=== PATIENT | male | born 1955 | race Caucasian/White ===

== ENCOUNTER 2016-11-17 16:46 | Emergency (ER) | payer MEDICAID ==
[2016-11-17] MEDS ORDERED: METOPROLOL 5 MG/5 ML VIAL IVP STA (17:48)
[2016-11-17] MEDS ORDERED: NITROGLYCERIN SL 0.4 MG TABLET SL STA (17:48)
[2016-11-17] MEDS ORDERED: HYDROmorphone 1 MG/ML SYRINGE IVP STA ×2 (17:48→19:21)
[2016-11-17] MEDS ORDERED: HYDROmorphone 1 MG/ML SYRINGE ONE ×2 (17:51→19:27)
[2016-11-17] MEDS ORDERED: NITROGLYCERIN SL 0.4 MG TABLET SL ONE (17:51)
[2016-11-17] MEDS ORDERED: METOPROLOL 5 MG/5 ML VIAL IVP ONE (18:01)
[2016-11-17] MEDS ORDERED: IPRATROPIUM/ALBUTEROL 3 ML NEB INH STA (18:47)
[2016-11-17] MEDS ORDERED: IPRATROPIUM/ALBUTEROL 3 ML NEB INH ONE (18:57)
[2016-11-17] MEDS ORDERED: DEXAMETHASONE 10 MG/ML VIAL IVP STA (20:15)
[2016-11-17] MEDS ORDERED: DEXAMETHASONE 10 MG/ML VIAL ONE (20:28)
== END 2016-11-17 20:46 | disposition home or self-care (01) ==
DX: J44.9 Chronic obstructive pulmonary disease, unspecified (principal); J44.1 Chronic obstructive pulmonary disease with (acute) exacerbation; R06.02 Shortness of breath; R07.2 Precordial pain; Z79.82 Long term (current) use of aspirin; I10 Essential (primary) hypertension; F17.200 Nicotine dependence, unspecified, uncomplicated
CPT/HCPCS: 36415; 71020; 80053; 83690; 83735; 83880; 84484; 85025; 93005; 93010; 94640; 96374; 96375; 96376; 99284; A9270; J1170; J7620

== ENCOUNTER 2018-12-07 16:37 | Outpatient (CLI) | payer MEDICAID | END 2018-12-07 16:38 | disposition critical access hospital (66) | LOC: EMS 16:37 | PROVIDERS: ATTEND Surgery | DX: M25.532 Pain in left wrist (principal); W10.8XXA Fall (on) (from) other stairs and steps, initial encounter; Y92.008 Other place in unspecified non-institutional (private) residence as the place of occurrence of the external cause ==

== ENCOUNTER 2018-12-07 16:47 | Emergency (ER) | payer MEDICAID ==
[2018-12-07] MEDS ORDERED: HYDROmorphone 1 MG/ML CARPUJECT IVP STA (16:51)
[2018-12-07] MEDS ORDERED: SODIUM CHLORIDE 0.9% 1,000 ML IV ONE (16:51)
--- NOTE | 2018-12-07 16:55 | ED Physician Documentation ---
History of Present Illness - Stated complaint Stated Complaint: GLF - History obtained from History obtained from: Patient, Family, EMS - History of Present Illness Timing: Today (This is a 63-year-old gentleman who has colon cancer. He has not been eating or drinking well lately and because of that he felt woozy and slipped and fell down 3 concrete steps in the garage today landing on the left wrist and hearing a crack also hitting his knees. He is not sure if he might of hit his head but he says his head does not hurt. There was no loss of consciousness.) Review of Systems Constitutional: reports: Reviewed and negative Cardiac: reports: Reviewed and negative Respiratory: reports: Reviewed and negative GI: reports: Constipation. denies: Nausea PD PAST MEDICAL HISTORY - Past Medical History Cardiovascular: Hypertension, High cholesterol, [place] Respiratory: COPD Endocrine/Autoimmune: HyPOthyroidism GI: GERD : Benign prostate hypertrophy HEENT: None Musculoskeletal: Osteoarthritis, Chronic back pain - Past Surgical History Past Surgical History: Yes General: Appendectomy, Bowel surgery, Hiatal hernia repair - Present Medications Home Medications: Ambulatory Orders Medication Instructions Recorded Confirmed Fentanyl [Fentanyl 12mcg patch] 25 mcg TOP QPM 09/30/14 02/11/16 Fluticasone Propionate [Flovent 50 mcg INH BID 09/30/14 02/11/16 Diskus] Levothyroxine [Synthroid] 175 mcg PO DAILY 09/30/14 02/11/16 Methocarbamol 750 mg PO Q6HR PRN 09/30/14 02/11/16 Nortriptyline HCl 150 mg PO DAILY 09/30/14 02/11/16 Oxybutynin Chloride [Ditropan Xl] 10 mg PO DAILY 09/30/14 02/11/16 Oxycodone HCl 10 mg PO TID 09/30/14 02/11/16 Terazosin HCl 10 mg PO DAILY 09/30/14 02/11/16 raNITIdine HCl [Ranitidine HCl] 150 mg PO BID 09/30/14 02/11/16 Aspirin [Casey Chewable Aspirin] 81 mg PO DAILY 02/11/16 02/11/16 Atorvastatin [Lipitor] 20 mg PO DAILY 02/11/16 02/11/16 Carvedilol 6.25 mg PO BID 02/11/16 02/11/16 Docusate Sodium 250Mg Capsule 250 mg PO DAILY #20 capsule 02/11/16 [Colace] Ibuprofen [Motrin] 200 mg PO DAILY PRN 02/11/16 02/11/16 Isosorbide Mononitrate ER [Imdur] 30 mg PO DAILY 02/11/16 02/11/16 Ondansetron Odt [Zofran] 4 mg TL Q6H PRN #14 tablet 02/11/16 Polyethylene Glycol 3350 [Miralax] 17 gm PO DAILY PRN 02/11/16 02/11/16 Albuterol Sulfate [Proair Hfa 2 puffs IH QID #1 hfa.aer.ad 11/17/16 Inhaler] Carvedilol 6.25 mg PO BID #15 tablet 11/17/16 Dexamethasone [Decadron] 4 mg PO DAILY #5 tablet 11/17/16 Nitroglycerin 0.4 mg SL ONCE PRN #1 bottle 11/17/16 - Allergies Allergies/Adverse Reactions: Allergies Allergy/AdvReac Type Severity Reaction Status Date / Time No Known Drug Allergies Allergy Verified 12/07/18 16:55 - Social History Does the pt smoke?: Yes Smoking Status: Current every day smoker Does the pt drink ETOH?: No Does the pt have substance abuse?: No - Immunizations Immunizations are current?: Yes - POLST Patient has POLST: No PD ED PE NORMAL - Vitals Vital signs reviewed: Yes - General General: Alert and oriented X 3, No acute distress - HEENT HEENT: PERRL, EOMI - Neck Neck: Supple, no meningeal sign, No bony TTP - Abdomen Abdomen: Normal bowel sounds, Soft, Non tender - Derm Derm: Normal color, Warm and dry - Extremities Extremities: Other (There is no deformity of the left wrist he is mildly tender over the ulnar styloid and has limit motion. There are small effusions of both knees with patellar tenderness bilaterally but no ligamentous laxity. He is able to walk and bear weight okay. He also has tenderness in the area of the first right metacarpal, no UCL laxity.) - Neuro Neuro: Alert and oriented X 3, Normal speech - Psych Psych: Normal mood, Normal affect Results - Vitals Vitals: Vital Signs - 24 hr 12/07/18 12/07/18 16:53 16:54 Temperature 36.8 C 36.8 C Heart Rate 67 67 Respiratory 18 18 Rate Blood Pressure 141/100 H 141/100 H O2 Saturation 97 97 Oxygen O2 Source Room air - Labs Labs: Laboratory Tests 12/07/18 17:00 Sodium 138 Potassium 4.1 Chloride 102 Carbon Dioxide 26 Anion Gap 10.0 BUN < 5 L Creatinine 1.0 Estimated GFR (MDRD) 75 L Glucose 114 H Calcium 9.6 Total Bilirubin 0.6 AST 23 ALT 12 Alkaline Phosphatase 130 H Total Protein 8.0 Albumin 4.5 Globulin 3.5 Albumin/Globulin Ratio 1.3 Lipase 33 - Rads (name of study) X-rays of the left wrist, right hand, and both knees Radiology: EMP read contemporaneously (All negative for fracture) PD MEDICAL DECISION MAKING - ED course ED course: Is a 63-year-old gentleman with Colon cancer who sustained a fall today, potentially due to mild dehydration from poor appetite. He was administered IV fluids and pain medication. Relevant x-rays were negative. He is placed in a Velcro wrist splint. Departure - Departure Disposition: 01 Home, Self Care Clinical Impression: Dehydration Left wrist sprain Qualifiers: Encounter type: initial encounter Qualified Code(s): S63.502A - Unspecified sprain of left wrist, initial encounter Contusion of right hand Qualifiers: Encounter type: initial encounter Qualified Code(s): S60.221A - Contusion of right hand, initial encounter Contusion of right knee Qualifiers: Encounter type: initial encounter Qualified Code(s): S80.01XA - Contusion of right knee, initial encounter Contusion of left knee Qualifiers: Encounter type: initial encounter Qualified Code(s): S80.02XA - Contusion of left knee, initial encounter Condition: Good Record reviewed to determine appropriate education?: Yes Instructions: ED Dehydration, ED Knee Pain UKO, ED Sprain Wrist Comments: Recheck with your doctor next week for persistent symptoms. Return for new or worsening symptoms. Your blood pressure was elevated today on check into the emergency department. This does not mean that you have hypertension, it is a common phenomenon to come to the emergency department and have elevated blood pressure. I recommend that you see your primary care physician within the week to have it rechecked when you are feeling better.
[2018-12-07 17:36] LABS: ALBUMIN 4.5 g/dL (3.2-5.5); ALBUMIN/GLOBULIN RATIO 1.3 (1.0-2.2); ALKALINE PHOSPHATASE 130 IU/L (42-121); ALT ALANINE AMINOTRANSFERASE 12 IU/L (10-60); AST ASPARTATE AMINOTRANSFERASE 23 IU/L (10-42); BILIRUBIN,TOTAL 0.6 mg/dL (0.2-1.0); BUN - BLOOD UREA NITROGEN < 5 mg/dL (6-20); CALCIUM 9.6 mg/dL (8.5-10.3); CARBON DIOXIDE - CO2 26 mmol/L (21-32); CHLORIDE 102 mmol/L (101-111); GFR - MDRD 75 (>89); GLUCOSE 114 mg/dL (70-100); LIPASE 33 U/L (22-51); SODIUM 138 mmol/L (135-145)
--- NOTE | 2018-12-07 17:51 | XRAY Report ---
Reason: hand inj Procedure Date: 12/07/2018 Accession Number: [id number] / [id number] Procedure: XR - Hand 3 View RT CPT Code: FULL RESULT: EXAM: RIGHT HAND RADIOGRAPHY EXAM DATE: 12/07/2018 05:18 PM. CLINICAL HISTORY: Hand inj. Thumb pain. COMPARISON: None. TECHNIQUE: 3 views. FINDINGS: Bones: Normal. No fractures or bone lesions. Joints: Normal. No subluxations. Soft Tissues: Normal. No soft tissue swelling. IMPRESSION: No fracture or subluxation. RADIA
--- NOTE | 2018-12-07 18:01 | XRAY Report ---
Reason: fall, knee and wrist inj Procedure Date: 12/07/2018 Accession Number: [id number] / [id number] Procedure: XR - Wrist 4 View LT CPT Code: FULL RESULT: EXAM: LEFT WRIST RADIOGRAPHY EXAM DATE: 12/07/2018 05:18 PM. CLINICAL HISTORY: Fall, knee and wrist inj. COMPARISON: None. TECHNIQUE: 4 views. FINDINGS: Bones: No fracture or bone destruction. Joints: Normal. No subluxations. Soft Tissues: There is dorsal forearm distal soft tissue swelling. IMPRESSION: No acute fracture or subluxation. RADIA
--- NOTE | 2018-12-07 18:03 | XRAY Report ---
Reason: fall, knee and wrist inj Procedure Date: 12/07/2018 Accession Number: [id number] / [id number] Procedure: XR - Knee 4 View BILAT CPT Code: FULL RESULT: EXAMS: 1. Right Knee Radiography 2. Left Knee Radiography EXAM DATE:12/07/2018 05:18 PM. CLINICAL HISTORY:Fall, knee and wrist inj. COMPARISON: None. TECHNIQUE: 4 views each. FINDINGS: Right Knee: Bones: Normal. No fractures or bone lesions. Joints: Normal. No effusion. No subluxations. Soft Tissues: Normal. No soft tissue swelling. Left Knee: Bones: Normal. No fractures or bone lesions. Joints: Normal. No effusion. No subluxations. Soft Tissues: Normal. No soft tissue swelling. IMPRESSION: No fracture or joint effusion bilaterally. RADIA
[2018-12-07 18:39] VITALS: BP 136/96
== END 2018-12-07 18:38 | disposition home or self-care (01) ==
LOC: EDUNIT# → ED 16:47
DX: E86.0 Dehydration (principal); S63.502A Unspecified sprain of left wrist, initial encounter; S60.221A Contusion of right hand, initial encounter; S80.01XA Contusion of right knee, initial encounter; S80.02XA Contusion of left knee, initial encounter; W10.8XXA Fall (on) (from) other stairs and steps, initial encounter; Y92.59 Other trade areas as the place of occurrence of the external cause; I10 Essential (primary) hypertension; C18.9 Malignant neoplasm of colon, unspecified; E78.00 Pure hypercholesterolemia, unspecified; E03.9 Hypothyroidism, unspecified; F17.200 Nicotine dependence, unspecified, uncomplicated; Z79.82 Long term (current) use of aspirin
CPT/HCPCS: 36415; 73110; 73130; 73564; 80053; 83690; 96361; 96374; 99283; 99284; J1170

== ENCOUNTER 2019-08-06 15:36 | Outpatient (CLI) | payer MEDICAID ==
[2019-08-06 16:10] LABS: CREATININE 0.9 mg/dL (0.6-1.2)
== END 2019-08-06 15:37 | disposition home or self-care (01) ==
LOC: LAB 15:36
PROVIDERS: ATTEND Urology
DX: N28.9 Disorder of kidney and ureter, unspecified (principal)
CPT/HCPCS: 36415; 82565; 84520

== ENCOUNTER 2020-03-06 14:36 | Outpatient (CLI) | payer MEDICAID ==
--- NOTE | 2020-03-06 17:55 | Ultrasound Report ---
Reason: SCROTAL PAIN Procedure Date: 03/06/2020 Accession Number: [id number] / [id number] Procedure: US - Testicle CPT Code: Final Report FULL RESULT: EXAM: SCROTAL ULTRASOUND EXAM DATE: 03/06/2020 03:20 PM. CLINICAL HISTORY: SCROTAL PAIN. COMPARISON: None. TECHNIQUE: Real-time scanning was performed with static images obtained. Color-flow images were utilized. FINDINGS: Right: Testis: 4.0 x 1.5 x 3.3 cm. Normal size and echotexture. No mass, calcification, or abnormal blood flow. Epididymis: Multiple simple cysts in the region of the epididymis with the normal epididymal parenchyma not well seen. The conglomerate of thin-walled cyst measures 3.1 x 1.5 x 2.0 cm. Hydrocele: None. Varicocele: None. Left: Testis: 3.9 x 1.8 x 2.5 cm. Normal size and echotexture. No mass, calcification, or abnormal blood flow. Epididymis: 3.9 x 1.8 x 2.5 cm. Normal size and echotexture. No mass or abnormal blood flow. Hydrocele: None. Varicocele: None. IMPRESSION: Multiple right-sided epididymal cysts. Otherwise, normal scrotal ultrasound. No finding of testicular torsion or epididymal orchitis. RADIA
--- NOTE | 2020-03-06 17:59 | Ultrasound Report ---
Reason: LT SIDE RENAL MASS Procedure Date: 03/06/2020 Accession Number: [id number] / [id number] Procedure: US - Retroperitoneal CPT Code: Final Report FULL RESULT: EXAM: RENAL ULTRASOUND EXAM DATE: 03/06/2020 03:40 PM. CLINICAL HISTORY: LT SIDE RENAL MASS. COMPARISON: None. TECHNIQUE: Real-time scanning was performed with static images obtained. FINDINGS: Right Kidney: 10.6 x 4.5 x 5.6 cm. Normal echotexture with no stones, contour-deforming masses, or hydronephrosis. Left Kidney: 10.5 x 8.5 x 5.5 cm. Normal echotexture with no stones, contour-deforming masses, or hydronephrosis. 2.2 cm simple cyst. - No imaging follow-up is recommended per consensus recommendations based on imaging criteria. Bladder: Bilateral jets seen. Prevoid bladder volume 54 mL. Patient unable to void. Other: Prostate volume 51 mL. Simple 1.1 cm prostate cyst. IMPRESSION: Enlarged prostate with 1.1 cm simple prostate cyst. Otherwise, normal renal and bladder ultrasound. RADIA
== END 2020-03-06 14:37 | disposition home or self-care (01) ==
LOC: DI 14:36
PROVIDERS: ATTEND Nurse Practitioner
DX: N50.82 Scrotal pain (principal); N50.3 Cyst of epididymis; N42.83 Cyst of prostate; N40.0 Benign prostatic hyperplasia without lower urinary tract symptoms
CPT/HCPCS: 76770; 76870

== ENCOUNTER 2020-03-14 19:56 | Outpatient (CLI) | payer MEDICAID ==
--- NOTE | 2020-03-14 23:23 | Ultrasound Report ---
Reason: BILATERAL LEG PX Procedure Date: 03/14/2020 Accession Number: [id number] / [id number] Procedure: US - Duplex Lwr Ext Arterial Bilat CPT Code: Final Report FULL RESULT: PROCEDURE: Duplex lower Ext Arterial Bilat INDICATIONS: BILATERAL LEG PX TECHNIQUE: Color and pulse Doppler interrogation was performed of both lower extremity arterial systems, with image documentation. COMPARISON: None. FINDINGS: Right lower extremity: Common femoral artery: 137 cm/sec, with monophasic flow. Deep femoral artery: 85 cm/sec, with biphasic flow. Proximal superficial femoral artery: 95 cm/sec, with triphasic flow. Mid superficial femoral artery: 95 cm/sec, with triphasic flow. Distal superficial femoral artery: 104 cm/sec, with triphasic flow. Popliteal artery: 57 cm/sec, with triphasic flow. Posterior tibial artery: 57 cm/sec, with monophasic flow. Anterior tibial artery/dorsalis pedis: 92/65 cm/sec, with monophasic flow. Mccall-scale imaging description: Diffuse atherosclerotic plaque most pronounced in the KITMAN and proximal SFA. Left lower extremity: Common femoral artery: 91 cm/sec, with triphasic flow. Deep femoral artery: 99 cm/sec, with monophasic flow. Proximal superficial femoral artery: 83 cm/sec, with monophasic flow. Mid superficial femoral artery: 98 cm/sec, with triphasic flow. Distal superficial femoral artery: 80 cm/sec, with triphasic flow. Popliteal artery: 61 cm/sec, with triphasic flow. Posterior tibial artery: 75 cm/sec, with monophasic flow. Anterior tibial artery/dorsalis pedis: 60/43 cm/sec, with monophasic flow. Mccall-scale imaging description: Diffuse atherosclerotic plaque most pronounced in the KITMAN and proximal SFA. IMPRESSION: Diffuse atherosclerotic plaque in the bilateral KITMAN and proximal SFA. Minimally elevated velocities in the right KITMAN and distal SFA. No critical stenosis identified. Reviewed by: Clyde Ortega MD on 03/14/2020 11:22 PM PDT Approved by: Clyde Ortega MD on 03/14/2020 11:22 PM PDT Station ID: [id number]
== END 2020-03-14 19:57 | disposition home or self-care (01) ==
LOC: DI 19:56
PROVIDERS: ATTEND Family Medicine
DX: I70.203 Unspecified atherosclerosis of native arteries of extremities, bilateral legs (principal)
CPT/HCPCS: 93925

== ENCOUNTER 2020-06-11 23:38 | Emergency (ER) | payer MEDICAID ==
--- NOTE | 2020-06-12 00:47 | ED Physician Documentation ---
PD HPI BACK PAIN - Stated complaint Stated Complaint: BACK PX - Chief complaint Chief Complaint: Back Pain - History obtained from History obtained from: Family - History of Present Illness Timing - onset: How many minutes ago (90) Timing - details: Abrupt onset Pain level max: 9 Pain level now: 8 Location: Lower Quality: Pain, Spasm, Similar to prior episodes Associated symptoms: No: Fever, Weakness, Numbness, Incontinent of urine, Unable to urinate, Hematuria, Incontinent of stool Improves with: Rest Worsened by: Movement Recently seen: Not recently seen - Additional information Additional information: c/o sudden onset of exacerbation of chronic lower back pain when he bent forward to flush toiler at home, approximately 2 hours ago, took oxycodone without improvement. exacerbated with position, lying flat in bed. Review of Systems Constitutional: reports: Reviewed and negative GI: reports: Reviewed and negative : denies: Dysuria, Frequency, Unable to Void, Incontinent Musculoskeletal: reports: Back pain Neurologic: reports: Reviewed and negative. denies: Generalized weakness, Focal weakness PD PAST MEDICAL HISTORY - Past Medical History Past Medical History: Yes Cardiovascular: Hypertension, High cholesterol, [place] Respiratory: COPD Endocrine/Autoimmune: HyPOthyroidism GI: GERD, Other : Benign prostate hypertrophy HEENT: None Musculoskeletal: Osteoarthritis, Chronic back pain Other Past Medical History: Colon CA - Past Surgical History Past Surgical History: Yes General: Appendectomy, Bowel surgery, Hiatal hernia repair, Other Cardiovascular: Pacemaker - Present Medications Home Medications: Ambulatory Orders Medication Instructions Recorded Confirmed Fluticasone Propionate [Flovent 50 mcg INH BID 09/30/14 06/12/20 Diskus] Levothyroxine [Synthroid] 175 mcg PO DAILY 09/30/14 06/12/20 Oxybutynin Chloride [Ditropan Xl] 10 mg PO DAILY 09/30/14 06/12/20 Oxycodone HCl 10 mg PO TID 09/30/14 06/12/20 Terazosin HCl 10 mg PO DAILY 09/30/14 06/12/20 methocarbamoL [Methocarbamol] 750 mg PO Q6HR PRN 09/30/14 06/12/20 Aspirin [Casey Chewable Aspirin] 81 mg PO DAILY 02/11/16 06/12/20 Atorvastatin [Lipitor] 20 mg PO DAILY 02/11/16 06/12/20 Docusate Sodium 250Mg Capsule 250 mg PO DAILY #20 capsule 02/11/16 06/12/20 [Colace] Ibuprofen [Motrin] 200 mg PO DAILY PRN 02/11/16 06/12/20 Isosorbide Mononitrate ER [Imdur] 30 mg PO DAILY 02/11/16 06/12/20 polyethylene glycoL 3350 [Miralax] 17 gm PO DAILY PRN 02/11/16 06/12/20 Albuterol Sulfate [Proair Hfa 2 puffs IH QID #1 hfa.aer.ad 11/17/16 06/12/20 Inhaler] Carvedilol 6.25 mg PO BID #15 tablet 11/17/16 06/12/20 diazePAM [Valium] 5 - 10 mg PO TID PRN #15 tablet 06/12/20 - Allergies Allergies/Adverse Reactions: Allergies Allergy/AdvReac Type Severity Reaction Status Date / Time gabapentin Allergy Hallucinati Verified 06/12/20 00:00 ons - Social History Does the pt smoke?: Yes Smoking Status: Current every day smoker Does the pt drink ETOH?: No Does the pt have substance abuse?: No - Immunizations Immunizations are current?: Yes - POLST Patient has POLST: No PD ED PE NORMAL - Vitals Vital signs reviewed: Yes - General General: Alert and oriented X 3, No acute distress (NAD at rest, obvious painful distress with movement involving lower back), Well developed/nourished - Neck Neck: Supple, no meningeal sign - Cardiac Cardiac: RRR, No murmur - Respiratory Respiratory: No respiratory distress, Clear bilaterally - Abdomen Abdomen: Soft, Non tender - Back Back: No CVA TTP, No spinal TTP - Derm Derm: Normal color, Warm and dry, No rash - Extremities Extremities: No edema - Neuro Neuro: Alert and oriented X 3, soaker helper 2-12 intact, No motor deficit, No sensory deficit Results - Vitals Vitals: Oxygen O2 Source Room air - Rads (name of study) lumbar spine xrays Radiology: Prelim report reviewed, See rad report PD MEDICAL DECISION MAKING - ED course Complexity details: reviewed results, re-evaluated patient, considered differential, d/w patient Departure - Departure Disposition: 01 Home, Self Care Clinical Impression: Back pain Condition: Good Instructions: ED Neck Back Pain General Follow-Up: NARESH,YUJIN, DO [Primary Care Provider] - Prescriptions: diazePAM [Valium] 5 - 10 mg PO TID PRN #15 tablet PRN Reason: Spasms Discharge Date/Time: 06/12/20 04:15
[2020-06-12] MEDS ORDERED: diazePAM 5 MG TABLET PO STA ×2 (01:24→03:24)
[2020-06-12] MEDS ORDERED: HYDROmorphone 1 MG/ML CARPUJECT IM STA (03:24)
[2020-06-12 04:05] VITALS: BP 139/101
--- NOTE | 2020-06-12 09:13 | XRAY Report ---
PROCEDURE: Lumbar Spine 2 View INDICATIONS: low back pain TECHNIQUE: 2 views of the lumbar spine were acquired. COMPARISON: None. FINDINGS: Bones: 5 [id number] vertebrae are present. There is moderate to severe disc and foraminal narr owing at L4-5, L5-S1. Trace anterolithesis of L5 on S1, No vertebral body compression fractures. N o suspicious bony lesions. Soft tissues: Overlying bowel gas pattern is normal. No suspicious soft tissue calcifications. IMPRESSION: Degenerative changes most notable at L4-5, L5-S1. Reviewed by: Celeste Santana MD on 06/12/2020 9:12 AM PDT Approved by: Celeste Santana MD on 06/12/2020 9:12 AM PDT Station ID: [id number]
== END 2020-06-12 04:15 | disposition home or self-care (01) ==
LOC: ED 23:38
DX: M51.36 Other intervertebral disc degeneration, lumbar region (principal); I10 Essential (primary) hypertension; F17.200 Nicotine dependence, unspecified, uncomplicated; Z79.82 Long term (current) use of aspirin
CPT/HCPCS: 72100; 96372; 99283; 99284; A9270; J1170

== ENCOUNTER 2020-10-24 14:07 | Outpatient (CLI) | payer MEDICAID ==
[2020-10-24] MEDS ORDERED: IOVERSOL 320 100 ML VIAL IVP ONE ×3 (14:40→15:29)
--- NOTE | 2020-10-24 17:11 | CT Report ---
PROCEDURE: ABDOMEN W/WO INDICATIONS: RENAL PROTOCOL - LEFT RENAL MASS CONTRAST: IV CONTRAST: Optiray 320 ml: 140 PO CONTRAST: *NO PO CONTRAST TECHNIQUE: 4 phase scanning was performed. After the administration of intravenous contrast, 5 mm thick section s acquired from the diaphragm to the symphysis. 5 mm coronal and sagittal reformats were acquired. For radiation dose reduction, the following was used: automated exposure control, adjustment of mA a nd/or kV according to patient size. COMPARISON: Ultrasound 03/06/2020, CT abdomen pelvis 02/11/2016 FINDINGS: Image quality: Excellent. Lung bases: Lung bases are demonstrate mild emphysematous changes. Heart size is normal. Partially imaged pacemaker lead and mild pericardial thickening anteriorly. Kidneys: Partially exophytic rounded mass arises from the upper pole of the left kidney measuring 2. 1 cm in AP diameter and demonstrating enhancement postcontrast (precontrast Hounsfield units are 26 a nd post contrast Hounsfield units are 63.) There is a 2.0 cm cyst in the midpole of the left kidney. No intrarenal calcifications or hydronephrosis. The visible portions of the proximal ureters are norm al. Other solid organs: Liver demonstrates several thin-walled hypodensities consistent with cysts. Some irregular hypodensities may be benign hemangiomas, most too small to characterize. Gallbladder is nor mal. Biliary system is non dilated. Pancreas is normal in morphology. Spleen is normal in size and enhancement. No adrenal nodules. Nodes and vessels: No retroperitoneal or mesenteric adenopathy by size criteria. There is fusiform a neurysmal dilatation of the mid abdominal aorta for length of approximately 4.8 cm. There is an eccen trically thickened right lateral wall. Transverse diameter is about 3.9 cm and AP diameter is 3.2 cm. The inferior vena cava is normal caliber. Bowel and peritoneum: Unenhanced bowel loops are normal in caliber. Fairly large quantity of solid s tool present in the visible distal colon. There is a bowel anastomosis in the left mid abdomen. Cecilia l appendix. No free fluid or air. Bones: No suspicious bony lesions. No vertebral body compression fractures. Miscellaneous: No ventral hernias. IMPRESSION: 1. 2.1 cm enhancing mass arising from the anterior upper pole of left kidney. This has increased in s ize since the prior CT study and hasn't differential diagnosis of renal cell carcinoma or oncocytoma. A Biopsy is recommended. 2. Several hepatic cysts and/or hemangiomas and one other left renal cyst. 3. Mid abdominal aortic aneurysm. This has developed since prior CT study. Reviewed by: Leonora Jo MD on 10/24/2020 5:10 PM PST Approved by: Leonora oJ MD on 10/24/2020 5:10 PM PST Station ID: [id number]
== END 2020-10-24 14:08 | disposition home or self-care (01) ==
LOC: DI 14:07
PROVIDERS: ATTEND Urology
DX: N28.89 Other specified disorders of kidney and ureter (principal); N28.1 Cyst of kidney, acquired; K76.89 Other specified diseases of liver; I71.4 Abdominal aortic aneurysm, without rupture
CPT/HCPCS: 74170; Q9967

== ENCOUNTER 2021-03-04 14:50 | Outpatient (CLI) | payer MEDICAID ==
--- NOTE | 2021-03-04 17:07 | CT Report ---
PROCEDURE: CERVICAL SPINE WO INDICATIONS: CERVICALGIA TECHNIQUE: Noncontrast 3 mm thick sections acquired from the skull base to the T4 level. Sagittal and coronal r eformats were then constructed. For radiation dose reduction, the following was used: automated exp osure control, adjustment of mA and/or kV according to patient size. COMPARISON: None. FINDINGS: Image quality: Excellent. Bones: No fractures or dislocations. Straightening of the normal lordotic curvature. Trace retroli sthesis of C3 on C4. Scattered multilevel endplate spurring and diffuse facet arthropathy. There is d iffuse moderate disc height loss throughout the cervical spine. No high-grade bony canal stenosis. At C3-C4, severe right bony foraminal stenosis. Mild/moderate left bony foraminal narrowing At C4-C5, severe right bony foraminal stenosis. Moderate left bony foraminal narrowing. At C4-C5 moderate bilateral bony foraminal narrowing. At C5-C6, mild bilateral bony foraminal narrowing. At C6-C7, mild bilateral bony foraminal narrowing. At C7-T1, mild to moderate bilateral bony foraminal narrowing. Soft tissues: Prevertebral soft tissues are normal in thickness. No paravertebral hematomas. No ap ical pneumothoraces. There is severe upper lobe predominant emphysema. IMPRESSION: Diffuse cervical spondylosis and facet arthropathy. No high-grade bony canal stenosis. Severe right C3-C4 and C4-C5 bony foraminal narrowing. Moderate bilateral C4-C5 bony foraminal narrowing. Reviewed by: Festus Doty MD on 03/04/2021 5:05 PM PDT Approved by: Festus Doty MD on 03/04/2021 5:05 PM PDT Station ID: [id number]
== END 2021-03-04 14:51 | disposition home or self-care (01) ==
LOC: DI 14:50
PROVIDERS: ATTEND Physician Assistant Medical
DX: M47.812 Spondylosis without myelopathy or radiculopathy, cervical region (principal); M48.02 Spinal stenosis, cervical region

== ENCOUNTER 2021-03-14 17:16 | Outpatient (CLI) | payer MEDICAID ==
--- NOTE | 2021-03-14 18:14 | Ultrasound Report ---
PROCEDURE: Pelvic Limited or F/U INDICATIONS: LEFT GROIN PAIN TECHNIQUE: Real-time transabdominal scanning was performed of the area of current clinical concern, left groin r egion, with image documentation. COMPARISON: None. FINDINGS: There is a left femoral hernia in the area of current clinical concern, which appears to r epresent bowel given presence of peristalsis. The herniation is mobile, increasing with Valsalva, and shows no evidence of current incarceration or strangulation. IMPRESSION: Significant size bowel containing left inguinal hernia. CT scanning likely is warranted for surgical planning. Reviewed by: Tab Joseph MD on 03/14/2021 5:12 PM BAILEY Approved by: Tab Joseph MD on 03/14/2021 5:12 PM AKSURINDER Station ID: [id number]
== END 2021-03-14 17:17 | disposition home or self-care (01) ==
LOC: DI 17:16
PROVIDERS: ATTEND Family Medicine
DX: K40.90 Unilateral inguinal hernia, without obstruction or gangrene, not specified as recurrent (principal)

== ENCOUNTER 2022-11-04 07:58 | Emergency (ER) | payer MEDICARE, MEDICAID ==
--- OUTSIDE RECORDS SUMMARY | 2022-11-04 08:23 | EXTERNAL MEDICAL SUMMARY RPT | Continuity of Care Document ---
:1955 Author Organization [facility] Address [address] [place] [address] Phone Care Team Providers Name Role Phone Unavailable Unavailable Unavailable Jacinda Chou Unavailable Unavailable Allergies and Intolerances date description facility type (no date) duloxetine [facility] (unknown) (no date) gabapentin [facility] (unknown) (no date) nortriptyline [facility] (unknown) (no date) pregabalin [facility] (unknown) Encounters No information. Functional Status No information. Immunizations No information. Medications No information. Problems date description facility 2022-10-18 00:00 Pain in right testicle [facility] Procedures date description facility 2022-10-18 00:00 [facility] Results/Labs test date author facility value unit interpret ation Result panel 1 (unknown) (no (unknown) (unknown) (no value) (units (unk nown) date) unknown) (unknown) (no (unknown) (unknown) [id number] (units (unkno wn) date) unknown) (unknown) (no (unknown) (unknown) 10/18/22 (units (unkno wn) date) unknown) (unknown) (no (unknown) (unknown) [address] [place] [address] (units (unknown) date) unknown) (unknown) (no (unknown) (unknown) Accession (units (unkn own) date) Number: unknown) [id number] (unknown) (no (unknown) (unknown) Age/Sex: 67 / M (units (unknown) date) Date of Service: unknown) (unknown) (no (unknown) (unknown) MOHAMUD [place] (units ( unknown) date) [id number] unknown) (unknown) (no (unknown) (unknown) Approved by: (units (u nknown) date) Deandre Sanchez M.D. unknown) on 10/18/2022 at 19:24 (unknown) (no (unknown) (unknown) COMPARISON: (units (un known) date) [facility], unknown) US, US SCROTUM, 06/01/2022, 13:07. (unknown) (no (unknown) (unknown) Cluster of cysts (units (unknown) date) in the right unknown) scrotum again seen measuring up to 2.4 (unknown) (no (unknown) (unknown) Color and pulse (units (unknown) date) Doppler unknown) interrogation was performed of both testicles. (unknown) (no (unknown) (unknown) : 1955 (units (unknown) date) Acct:[id number] unknown) (unknown) (no (unknown) (unknown) Dictated by: (units (u nknown) date) Deandre Sanchez M.D. unknown) on 10/18/2022 at 19:21 (unknown) (no (unknown) (unknown) Doppler: Color (units (unknown) date) and pulse Doppler unknown) demonstrate normal and symmetric arterial (unknown) (no (unknown) (unknown) Epididymis (units (unk nown) date) within normal unknown) limits. (unknown) (no (unknown) (unknown) FINDINGS: (units (unkn own) date) unknown) (unknown) (no (unknown) (unknown) IMPRESSION: No (units (unknown) date) evidence of unknown) torsion. Trace left hydrocele. Other findings as (unknown) (no (unknown) (unknown) INDICATIONS: (units (u nknown) date) PAIN unknown) (unknown) (no (unknown) (unknown) [facility] (units (unknown) date) unknown) (unknown) (no (unknown) (unknown) Left: Left (units (unk nown) date) testis measures unknown) 3.4 x 2 x 2.8 centimeters. Overall echotexture is (unknown) (no (unknown) (unknown) Loc: ED (units (unkno wn) date) unknown) (unknown) (no (unknown) (unknown) No hydrocele or (units (unknown) date) varicocele. unknown) (unknown) (no (unknown) (unknown) Ordering (units (unkno wn) date) Provider: unknown) Selina Barajas D.O. (unknown) (no (unknown) (unknown) PROCEDURE: US (units ( unknown) date) SCROTUM unknown) (unknown) (no (unknown) (unknown) Patient: (units (unkno wn) date) Zia Hernandez unknown) MR#: [id number] (unknown) (no (unknown) (unknown) Procedure: US (units ( unknown) date) scrotum unknown) (unknown) (no (unknown) (unknown) Real-time (units (unkn own) date) scanning was unknown) performed of the scrotum and testicles, with image (unknown) (no (unknown) (unknown) Right epididymis (units (unknown) date) is surgically unknown) absent, possibly with some residual tissue, also (unknown) (no (unknown) (unknown) Right: Right (units (u nknown) date) testicle measures unknown) 3.7 x 1.7 x 2.7 centimeters. Echotexture is (unknown) (no (unknown) (unknown) Signed (units (unkno wn) date) unknown) (unknown) (no (unknown) (unknown) TECHNIQUE: (units (unk nown) date) unknown) (unknown) (no (unknown) (unknown) Ultrasound (units (unk nown) date) Report unknown) (unknown) (no (unknown) (unknown) above, (units (unkno wn) date) unknown) (unknown) (no (unknown) (unknown) centimeters. (units (u nknown) date) unknown) (unknown) (no (unknown) (unknown) documentation. (units (unknown) date) unknown) (unknown) (no (unknown) (unknown) favored stable. (units (unknown) date) unknown) (unknown) (no (unknown) (unknown) flow in both (units (u nknown) date) unknown) (unknown) (no (unknown) (unknown) heterogeneous. (units (unknown) date) Prominent rete unknown) testes and small cystic foci again seen. (unknown) (no (unknown) (unknown) homogeneous. (units (u nknown) date) Trace left unknown) hydrocele. No varicocele. (unknown) (no (unknown) (unknown) noted on (units (unkno wn) date) unknown) (unknown) (no (unknown) (unknown) prior (units (unkno wn) date) ultrasound. unknown) (unknown) (no (unknown) (unknown) testicles. (units (unk nown) date) unknown) Result panel 2 (unknown) (no (unknown) (unknown) (no value) (units (unk nown) date) unknown) (unknown) (no (unknown) (unknown) (Synthroid) (units (un known) date) unknown) (unknown) (no (unknown) (unknown) 10/18/22 17:39 (units (unknown) date) unknown) (unknown) (no (unknown) (unknown) 10/18/22 (units (unkno wn) date) unknown) (unknown) (no (unknown) (unknown) [id number] (units (unkno wn) date) unknown) (unknown) (no (unknown) (unknown) 1 spray (units (unkno wn) date) INTRANASAL PRN unknown) (Reason: Sedation) (unknown) (no (unknown) (unknown) 10 mg PO DAILY (units (unknown) date) unknown) (unknown) (no (unknown) (unknown) 10 mg PO Q4-5H (units (unknown) date) unknown) (unknown) (no (unknown) (unknown) 10:11 (units (unkno wn) date) unknown) (unknown) (no (unknown) (unknown) 12.5 mg PO BID (units (unknown) date) unknown) (unknown) (no (unknown) (unknown) 175 mcg PO DAILY (units (unknown) date) unknown) (unknown) (no (unknown) (unknown) 17:00 (units (unkno wn) date) unknown) (unknown) (no (unknown) (unknown) 2 puff (units (unkno wn) date) INHALATION Q4HR unknown) (unknown) (no (unknown) (unknown) 2.5 mg PO DAILY (units (unknown) date) unknown) (unknown) (no (unknown) (unknown) 5 mg PO BID (units (un known) date) unknown) (unknown) (no (unknown) (unknown) 5 mg PO DAILY (units ( unknown) date) unknown) (unknown) (no (unknown) (unknown) Age/Sex: 67 / M (units (unknown) date) unknown) (unknown) (no (unknown) (unknown) Allergies (units (unkn own) date) unknown) (unknown) (no (unknown) (unknown) Allergy/AdvReac (units (unknown) date) Type Severity unknown) Reaction Status Date / Time (unknown) (no (unknown) (unknown) Arthritis (units (unkn own) date) unknown) (unknown) (no (unknown) (unknown) Blood Pressure (units (unknown) date) 114/70 10/18/22 unknown) 17:00 (unknown) (no (unknown) (unknown) Blood Pressure (units (unknown) date) 114/70 unknown) (unknown) (no (unknown) (unknown) CHANGES (units (unkno wn) date) unknown) (unknown) (no (unknown) (unknown) COPD (chronic (units ( unknown) date) obstructive unknown) pulmonary disease) (unknown) (no (unknown) (unknown) Chest pain (units (unk nown) date) unknown) (unknown) (no (unknown) (unknown) Chief complaint: (units (unknown) date) Urogenital-Male unknown) (unknown) (no (unknown) (unknown) Colon cancer (units (u nknown) date) unknown) (unknown) (no (unknown) (unknown) Coronary artery (units (unknown) date) disease involving unknown) [place] heart (unknown) (no (unknown) (unknown) Coronary artery (units (unknown) date) disease unknown) (unknown) (no (unknown) (unknown) Course (units (unkno wn) date) unknown) (unknown) (no (unknown) (unknown) : 1955 (units (unknown) date) Acct:[id number] unknown) (unknown) (no (unknown) (unknown) Date of Service: (units (unknown) date) 10/18/22 unknown) (unknown) (no (unknown) (unknown) Departure (units (unkn own) date) unknown) (unknown) (no (unknown) (unknown) Discharge Plan (units (unknown) date) unknown) (unknown) (no (unknown) (unknown) Discontinued (units (u nknown) date) Medications unknown) (unknown) (no (unknown) (unknown) Documented By: (units (unknown) date) KB unknown) (unknown) (no (unknown) (unknown) ED Orders (units (unkn own) date) unknown) (unknown) (no (unknown) (unknown) ER Physician: (units ( unknown) date) Benny Bush unknown) D.O. (unknown) (no (unknown) (unknown) Eliquis 5 mg (units (u nknown) date) tablet unknown) (unknown) (no (unknown) (unknown) Emergency Report (units (unknown) date) unknown) (unknown) (no (unknown) (unknown) Exam (units (unkno wn) date) unknown) (unknown) (no (unknown) (unknown) FOR SUSPECTED (units ( unknown) date) OPIOID OVERDOSE unknown) ADMINISTER A SINGLE SPRAY INTO 1 NOSTRIL, THEN (unknown) (no (unknown) (unknown) Family History (units (unknown) date) (Reviewed unknown) 07/28/22 @ 16:24 by Stuart Thibodeaux MD) (unknown) (no (unknown) (unknown) Family/Other (units (u nknown) date) Cancer unknown) (unknown) (no (unknown) (unknown) GERD (units (unkno wn) date) (gastroesophageal unknown) reflux disease) (unknown) (no (unknown) (unknown) General (units (unkno wn) date) unknown) (unknown) (no (unknown) (unknown) Grandmother (units (un known) date) Cancer unknown) (unknown) (no (unknown) (unknown) H/O abdominal (units ( unknown) date) surgery unknown) (unknown) (no (unknown) (unknown) HPI - Male (units (unk nown) date) Genitourinary unknown) (unknown) (no (unknown) (unknown) High blood (units (unk nown) date) pressure unknown) (unknown) (no (unknown) (unknown) History of colon (units (unknown) date) surgery unknown) (unknown) (no (unknown) (unknown) History of (units (unk nown) date) hernia surgery unknown) (unknown) (no (unknown) (unknown) History of (units (unk nown) date) testicular unknown) surgery (unknown) (no (unknown) (unknown) History of (units (unk nown) date) thoracic surgery unknown) (unknown) (no (unknown) (unknown) History of (units (unk nown) date) thyroid surgery unknown) (unknown) (no (unknown) (unknown) Home Medications (units (unknown) date) unknown) (unknown) (no (unknown) (unknown) Hydromorphone (units ( unknown) date) HCl unknown) (Hydromorphone 1 Mg Inj) 1 mg IM NOW ONE (unknown) (no (unknown) (unknown) Hyperlipidemia (units (unknown) date) unknown) (unknown) (no (unknown) (unknown) Hypertension (units (u nknown) date) unknown) (unknown) (no (unknown) (unknown) INHALE 2 PUFFS (units (unknown) date) BY MOUTH EVERY unknown) FOUR HOURS NEEDED FOR WHEEZING OR SHORTNESS (unknown) (no (unknown) (unknown) 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 unknown) (unknown) (no (unknown) (unknown) Initial Vital (units ( unknown) date) Signs unknown) (unknown) (no (unknown) (unknown) Initial Vital (units ( unknown) date) Signs: unknown) (unknown) (no (unknown) (unknown) [facility] (units (unknown) date) [address]) [place] [address] (unknown) (no (unknown) (unknown) Jacinda Chou DO (units ( unknown) date) [Primary Care unknown) Provider] (unknown) (no (unknown) (unknown) Label Comments: (units (unknown) date) unknown) (unknown) (no (unknown) (unknown) Last Admin: (units (un known) date) 10/18/22 18:06 unknown) Dose: 1 mg (unknown) (no (unknown) (unknown) Medical History (units (unknown) date) (Reviewed unknown) 07/28/22 @ 16:24 by Stuart Thibodeaux MD) (unknown) (no (unknown) (unknown) Medication (units (unk nown) date) Instructions unknown) Recorded Confirmed (unknown) (no (unknown) (unknown) Mode of arrival: (units (unknown) date) Ambulatory unknown) (unknown) (no (unknown) (unknown) Mother Cancer (units ( unknown) date) unknown) (unknown) (no (unknown) (unknown) 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 (unknown) (no (unknown) (unknown) No Action (units (unkn own) date) unknown) (unknown) (no (unknown) (unknown) OF BREATH (units (unkn own) date) unknown) (unknown) (no (unknown) (unknown) Ordered: (units (unkno wn) date) unknown) (unknown) (no (unknown) (unknown) Orders (units (unkno wn) date) unknown) (unknown) (no (unknown) (unknown) Oxygen Delivery (units (unknown) date) Method 10/18/22 unknown) 17:00 (unknown) (no (unknown) (unknown) Oxygen Delivery (units (unknown) date) Method Room Air unknown) (unknown) (no (unknown) (unknown) Patient History (units (unknown) date) unknown) (unknown) (no (unknown) (unknown) Patient: (units (unkno wn) date) Zia Hernandez unknown) MR#: [id number] (unknown) (no (unknown) (unknown) Peripheral (units (unk nown) date) vascular disease unknown) (unknown) (no (unknown) (unknown) Prescriptions: (units (unknown) date) unknown) (unknown) (no (unknown) (unknown) Pulse Oximetry (units (unknown) date) 97 10/18/22 17:00 unknown) (unknown) (no (unknown) (unknown) Pulse Oximetry (units (unknown) date) 97 unknown) (unknown) (no (unknown) (unknown) Pulse Rate 57 L (units (unknown) date) 10/18/22 17:00 unknown) (unknown) (no (unknown) (unknown) Pulse Rate 57 L (units (unknown) date) unknown) (unknown) (no (unknown) (unknown) RESPONSE. (units (unkn own) date) unknown) (unknown) (no (unknown) (unknown) Referrals: (units (unk nown) date) unknown) (unknown) (no (unknown) (unknown) Related Data (units (u nknown) date) unknown) (unknown) (no (unknown) (unknown) Respiratory Rate (units (unknown) date) 18 10/18/22 17:00 unknown) (unknown) (no (unknown) (unknown) Respiratory Rate (units (unknown) date) 18 unknown) (unknown) (no (unknown) (unknown) SEEK EMERGENCY (units (unknown) date) MEDICAL CARE. MAY unknown) REPEAT EVERY 2-3 MINUTES IF MINIMAL OR NO (unknown) (no (unknown) (unknown) Signed By: (units (unk nown) date) unknown) (unknown) (no (unknown) (unknown) Sister Thyroid (units (unknown) date) cancer unknown) (unknown) (no (unknown) (unknown) Smoking Status: (units (unknown) date) Former smoker unknown) (unknown) (no (unknown) (unknown) Social History (units (unknown) date) (Reviewed unknown) 07/28/22 @ 16:24 by Stuart Thibodeaux MD) (unknown) (no (unknown) (unknown) Source: patient (units (unknown) date) unknown) (unknown) (no (unknown) (unknown) Stated (units (unkno wn) date) complaint: thinks unknown) he ruptured a testicle (unknown) (no (unknown) (unknown) Stop: 10/18/22 (units (unknown) date) 18:03 unknown) (unknown) (no (unknown) (unknown) Substance Use (units ( unknown) date) Type: marijuana unknown) (unknown) (no (unknown) (unknown) Surgical History (units (unknown) date) (Reviewed unknown) 07/28/22 @ 16:24 by Stuart Thibodeaux MD) (unknown) (no (unknown) (unknown) TAKE 1/2 TABLET (units (unknown) date) BY MOUTH TWICE unknown) DAILY (unknown) (no (unknown) (unknown) TAKE ONE TABLET (units (unknown) date) BY MOUTH EVERY unknown) SIX HOURS NEEDED FOR MODERATE PAIN (unknown) (no (unknown) (unknown) TAKE ONE TABLET (units (unknown) date) BY MOUTH ONE TIME unknown) DAILY (unknown) (no (unknown) (unknown) TAKE ONE TABLET (units (unknown) date) BY MOUTH TWICE unknown) DAILY (unknown) (no (unknown) (unknown) Temperature 98.2 (units (unknown) date) F 10/18/22 17:00 unknown) (unknown) (no (unknown) (unknown) Temperature 98.2 (units (unknown) date) F unknown) (unknown) (no (unknown) (unknown) Thyroid cancer (units (unknown) date) unknown) (unknown) (no (unknown) (unknown) Thyroid disease (units (unknown) date) unknown) (unknown) (no (unknown) (unknown) Time Seen by (units (u nknown) date) Provider: unknown) 10/18/22 18:24 (unknown) (no (unknown) (unknown) Type(s) of (units (unk nown) date) exercise: other unknown) (unknown) (no (unknown) (unknown) US scrotum Stat (units (unknown) date) unknown) (unknown) (no (unknown) (unknown) Vital Signs - 8 (units (unknown) date) hr unknown) (unknown) (no (unknown) (unknown) Vital Signs (units (un known) date) unknown) (unknown) (no (unknown) (unknown) Vital signs: (units (u nknown) date) unknown) (unknown) (no (unknown) (unknown) aerosol inhaler (units (unknown) date) (ProAir HFA) unknown) (unknown) (no (unknown) (unknown) albuterol (units (unkn own) date) sulfate 90 unknown) mcg/actuation 2 puff inhalation Q4HR 03/14/22 07/28/22 (unknown) (no (unknown) (unknown) albuterol (units (unkn own) date) sulfate [ProAir unknown) HFA] 90 mcg/actuation HFA aerosol inhaler (unknown) (no (unknown) (unknown) alcohol intake (units (unknown) date) frequency: 0-2 unknown) drinks per day (unknown) (no (unknown) (unknown) alfuzosin 10 mg (units (unknown) date) tablet,extended unknown) 10 mg PO DAILY uti 03/14/22 07/28/22 (unknown) (no (unknown) (unknown) alfuzosin (units (unkn own) date) [Uroxatral] 10 mg unknown) tablet extended release 24 hr (unknown) (no (unknown) (unknown) apixaban 5 mg (units ( unknown) date) tablet (Eliquis) unknown) 5 mg PO BID afib 03/14/22 07/28/22 (unknown) (no (unknown) (unknown) duloxetine [From (units (unknown) date) Cymbalta] Allergy unknown) Intermediate Palpitation Verified 07/28/22 (unknown) (no (unknown) (unknown) frequency: other (units (unknown) date) unknown) (unknown) (no (unknown) (unknown) gabapentin (units (unk nown) date) Allergy Severe unknown) Hallucinati Verified 07/28/22 10:11 (unknown) (no (unknown) (unknown) household (units (unkn own) date) members: family unknown) (unknown) (no (unknown) (unknown) levothyroxine (units ( unknown) date) 175 mcg tablet unknown) 175 mcg PO DAILY thyroid ca 03/14/22 07/28/22 (unknown) (no (unknown) (unknown) levothyroxine (units ( unknown) date) [Synthroid] 175 unknown) mcg tablet (unknown) (no (unknown) (unknown) lisinopril 2.5 (units (unknown) date) mg tablet unknown) (Zestril) 2.5 mg PO DAILY HTN 03/14/22 07/28/22 (unknown) (no (unknown) (unknown) lisinopril (units (unk nown) date) [Zestril] 2.5 mg unknown) tablet (unknown) (no (unknown) (unknown) marital status: (units (unknown) date) unmarried,single unknown) (unknown) (no (unknown) (unknown) metoprolol (units (unk nown) date) tartrate 25 mg unknown) tablet 12.5 mg PO BID 03/14/22 07/28/22 (unknown) (no (unknown) (unknown) metoprolol (units (unk nown) date) tartrate 25 mg unknown) tablet (unknown) (no (unknown) (unknown) naloxone 4 (units (unk nown) date) mg/actuation unknown) nasal 1 spray intranasal PRN Sedation 03/14/22 07/28/22 (unknown) (no (unknown) (unknown) naloxone (units (unkno wn) date) [Narcan] 4 unknown) mg/actuation spray,non-aerosol (unknown) (no (unknown) (unknown) ng (units (unkno wn) date) unknown) (unknown) (no (unknown) (unknown) nortriptyline (units ( unknown) date) Allergy Severe unknown) Chest Pain Verified 07/28/22 10:11 (unknown) (no (unknown) (unknown) number of (units (unkn own) date) children: 0 unknown) (unknown) (no (unknown) (unknown) oxycodone 10 mg (units (unknown) date) tablet 10 mg PO unknown) Q4-5H CHRONIC 03/14/22 07/28/22 (unknown) (no (unknown) (unknown) oxycodone 10 mg (units (unknown) date) tablet unknown) (unknown) (no (unknown) (unknown) pregabalin (units (unk nown) date) Allergy unknown) Intermediate VISION Verified 07/28/22 10:11 (unknown) (no (unknown) (unknown) release 24 hr (units ( unknown) date) (Uroxatral) unknown) (unknown) (no (unknown) (unknown) s (units (unkno wn) date) unknown) (unknown) (no (unknown) (unknown) solifenacin 5 mg (units (unknown) date) tablet 5 mg PO unknown) DAILY 06/30/22 07/28/22 (unknown) (no (unknown) (unknown) solifenacin 5 mg (units (unknown) date) tablet unknown) (unknown) (no (unknown) (unknown) spray (Narcan) (units (unknown) date) unknown) Result panel 3 (unknown) (no (unknown) (unknown) (no value) (units (unk nown) date) unknown) (unknown) (no (unknown) (unknown) (Synthroid) (units (un known) date) unknown) (unknown) (no (unknown) (unknown) 10/18/22 17:39 (units (unknown) date) unknown) (unknown) (no (unknown) (unknown) 10/18/22 (units (unkno wn) date) unknown) (unknown) (no (unknown) (unknown) [id number] (units (unkno wn) date) unknown) (unknown) (no (unknown) (unknown) 1 spray (units (unkno wn) date) INTRANASAL PRN unknown) (Reason: Sedation) (unknown) (no (unknown) (unknown) 10 mg PO DAILY (units (unknown) date) unknown) (unknown) (no (unknown) (unknown) 10 mg PO Q4-5H (units (unknown) date) unknown) (unknown) (no (unknown) (unknown) 10:11 (units (unkno wn) date) unknown) (unknown) (no (unknown) (unknown) 12.5 mg PO BID (units (unknown) date) unknown) (unknown) (no (unknown) (unknown) 175 mcg PO DAILY (units (unknown) date) unknown) (unknown) (no (unknown) (unknown) 17:00 (units (unkno wn) date) unknown) (unknown) (no (unknown) (unknown) 2 puff (units (unkno wn) date) INHALATION Q4HR unknown) (unknown) (no (unknown) (unknown) 2.5 mg PO DAILY (units (unknown) date) unknown) (unknown) (no (unknown) (unknown) 5 mg PO BID (units (un known) date) unknown) (unknown) (no (unknown) (unknown) 5 mg PO DAILY (units ( unknown) date) unknown) (unknown) (no (unknown) (unknown) Age/Sex: 67 / M (units (unknown) date) unknown) (unknown) (no (unknown) (unknown) Allergies (units (unkn own) date) unknown) (unknown) (no (unknown) (unknown) Allergy/AdvReac (units (unknown) date) Type Severity unknown) Reaction Status Date / Time (unknown) (no (unknown) (unknown) Arthritis (units (unkn own) date) unknown) (unknown) (no (unknown) (unknown) Blood Pressure (units (unknown) date) 114/70 10/18/22 unknown) 17:00 (unknown) (no (unknown) (unknown) Blood Pressure (units (unknown) date) 114/70 unknown) (unknown) (no (unknown) (unknown) CHANGES (units (unkno wn) date) unknown) (unknown) (no (unknown) (unknown) COPD (chronic (units ( unknown) date) obstructive unknown) pulmonary disease) (unknown) (no (unknown) (unknown) Chest pain (units (unk nown) date) unknown) (unknown) (no (unknown) (unknown) Chief complaint: (units (unknown) date) Urogenital-Male unknown) (unknown) (no (unknown) (unknown) Colon cancer (units (u nknown) date) unknown) (unknown) (no (unknown) (unknown) Coronary artery (units (unknown) date) disease involving unknown) [place] heart (unknown) (no (unknown) (unknown) Coronary artery (units (unknown) date) disease unknown) (unknown) (no (unknown) (unknown) Course (units (unkno wn) date) unknown) (unknown) (no (unknown) (unknown) : 1955 (units (unknown) date) Acct:[id number] unknown) (unknown) (no (unknown) (unknown) Date of Service: (units (unknown) date) 10/18/22 unknown) (unknown) (no (unknown) (unknown) Departure (units (unkn own) date) unknown) (unknown) (no (unknown) (unknown) Discharge Plan (units (unknown) date) unknown) (unknown) (no (unknown) (unknown) Discontinued (units (u nknown) date) Medications unknown) (unknown) (no (unknown) (unknown) Documented By: (units (unknown) date) KB unknown) (unknown) (no (unknown) (unknown) ED Orders (units (unkn own) date) unknown) (unknown) (no (unknown) (unknown) ER Physician: (units ( unknown) date) Benny Bush unknown) D.O. (unknown) (no (unknown) (unknown) Eliquis 5 mg (units (u nknown) date) tablet unknown) (unknown) (no (unknown) (unknown) Emergency Report (units (unknown) date) unknown) (unknown) (no (unknown) (unknown) Exam (units (unkno wn) date) unknown) (unknown) (no (unknown) (unknown) FOR SUSPECTED (units ( unknown) date) OPIOID OVERDOSE unknown) ADMINISTER A SINGLE SPRAY INTO 1 NOSTRIL, THEN (unknown) (no (unknown) (unknown) Family History (units (unknown) date) (Reviewed unknown) 07/28/22 @ 16:24 by Stuart Thibodeaux MD) (unknown) (no (unknown) (unknown) Family/Other (units (u nknown) date) Cancer unknown) (unknown) (no (unknown) (unknown) GERD (units (unkno wn) date) (gastroesophageal unknown) reflux disease) (unknown) (no (unknown) (unknown) General (units (unkno wn) date) unknown) (unknown) (no (unknown) (unknown) Grandmother (units (un known) date) Cancer unknown) (unknown) (no (unknown) (unknown) H/O abdominal (units ( unknown) date) surgery unknown) (unknown) (no (unknown) (unknown) HPI - Male (units (unk nown) date) Genitourinary unknown) (unknown) (no (unknown) (unknown) High blood (units (unk nown) date) pressure unknown) (unknown) (no (unknown) (unknown) History of colon (units (unknown) date) surgery unknown) (unknown) (no (unknown) (unknown) History of (units (unk nown) date) hernia surgery unknown) (unknown) (no (unknown) (unknown) History of (units (unk nown) date) testicular unknown) surgery (unknown) (no (unknown) (unknown) History of (units (unk nown) date) thoracic surgery unknown) (unknown) (no (unknown) (unknown) History of (units (unk nown) date) thyroid surgery unknown) (unknown) (no (unknown) (unknown) Home Medications (units (unknown) date) unknown) (unknown) (no (unknown) (unknown) Hydromorphone (units ( unknown) date) HCl unknown) (Hydromorphone 1 Mg Inj) 1 mg IM NOW ONE (unknown) (no (unknown) (unknown) Hyperlipidemia (units (unknown) date) unknown) (unknown) (no (unknown) (unknown) Hypertension (units (u nknown) date) unknown) (unknown) (no (unknown) (unknown) INHALE 2 PUFFS (units (unknown) date) BY MOUTH EVERY unknown) FOUR HOURS NEEDED FOR WHEEZING OR SHORTNESS (unknown) (no (unknown) (unknown) 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 unknown) (unknown) (no (unknown) (unknown) Initial Vital (units ( unknown) date) Signs unknown) (unknown) (no (unknown) (unknown) Initial Vital (units ( unknown) date) Signs: unknown) (unknown) (no (unknown) (unknown) [facility] (units (unknown) date) [address] unknown) [place] [address] (unknown) (no (unknown) (unknown) Jacinda Chou DO (units ( unknown) date) [Primary Care unknown) Provider] (unknown) (no (unknown) (unknown) Label Comments: (units (unknown) date) unknown) (unknown) (no (unknown) (unknown) Last Admin: (units (un known) date) 10/18/22 18:06 unknown) Dose: 1 mg (unknown) (no (unknown) (unknown) Medical History (units (unknown) date) (Reviewed unknown) 07/28/22 @ 16:24 by Stuart Thibodeaux MD) (unknown) (no (unknown) (unknown) Medication (units (unk nown) date) Instructions unknown) Recorded Confirmed (unknown) (no (unknown) (unknown) Mode of arrival: (units (unknown) date) Ambulatory unknown) (unknown) (no (unknown) (unknown) Mother Cancer (units ( unknown) date) unknown) (unknown) (no (unknown) (unknown) 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 (unknown) (no (unknown) (unknown) No Action (units (unkn own) date) unknown) (unknown) (no (unknown) (unknown) OF BREATH (units (unkn own) date) unknown) (unknown) (no (unknown) (unknown) Ordered: (units (unkno wn) date) unknown) (unknown) (no (unknown) (unknown) Orders (units (unkno wn) date) unknown) (unknown) (no (unknown) (unknown) Oxygen Delivery (units (unknown) date) Method 10/18/22 unknown) 17:00 (unknown) (no (unknown) (unknown) Oxygen Delivery (units (unknown) date) Method Room Air unknown) (unknown) (no (unknown) (unknown) Patient History (units (unknown) date) unknown) (unknown) (no (unknown) (unknown) Patient: (units (unkno wn) date) Zia Hernandez unknown) MR#: [id number] (unknown) (no (unknown) (unknown) Peripheral (units (unk nown) date) vascular disease unknown) (unknown) (no (unknown) (unknown) Prescriptions: (units (unknown) date) unknown) (unknown) (no (unknown) (unknown) Pulse Oximetry (units (unknown) date) 97 10/18/22 17:00 unknown) (unknown) (no (unknown) (unknown) Pulse Oximetry (units (unknown) date) 97 unknown) (unknown) (no (unknown) (unknown) Pulse Rate 57 L (units (unknown) date) 10/18/22 17:00 unknown) (unknown) (no (unknown) (unknown) Pulse Rate 57 L (units (unknown) date) unknown) (unknown) (no (unknown) (unknown) RESPONSE. (units (unkn own) date) unknown) (unknown) (no (unknown) (unknown) Referrals: (units (unk nown) date) unknown) (unknown) (no (unknown) (unknown) Related Data (units (u nknown) date) unknown) (unknown) (no (unknown) (unknown) Respiratory Rate (units (unknown) date) 18 10/18/22 17:00 unknown) (unknown) (no (unknown) (unknown) Respiratory Rate (units (unknown) date) 18 unknown) (unknown) (no (unknown) (unknown) SEEK EMERGENCY (units (unknown) date) MEDICAL CARE. MAY unknown) REPEAT EVERY 2-3 MINUTES IF MINIMAL OR NO (unknown) (no (unknown) (unknown) Signed By: (units (unk nown) date) unknown) (unknown) (no (unknown) (unknown) Sister Thyroid (units (unknown) date) cancer unknown) (unknown) (no (unknown) (unknown) Smoking Status: (units (unknown) date) Former smoker unknown) (unknown) (no (unknown) (unknown) Social History (units (unknown) date) (Reviewed unknown) 07/28/22 @ 16:24 by Stuart Thibodeaux MD) (unknown) (no (unknown) (unknown) Source: patient (units (unknown) date) unknown) (unknown) (no (unknown) (unknown) Stated (units (unkno wn) date) complaint: thinks unknown) he ruptured a testicle (unknown) (no (unknown) (unknown) Stop: 10/18/22 (units (unknown) date) 18:03 unknown) (unknown) (no (unknown) (unknown) Substance Use (units ( unknown) date) Type: marijuana unknown) (unknown) (no (unknown) (unknown) Surgical History (units (unknown) date) (Reviewed unknown) 07/28/22 @ 16:24 by Stuart Thibodeaux MD) (unknown) (no (unknown) (unknown) TAKE 1/2 TABLET (units (unknown) date) BY MOUTH TWICE unknown) DAILY (unknown) (no (unknown) (unknown) TAKE ONE TABLET (units (unknown) date) BY MOUTH EVERY unknown) SIX HOURS NEEDED FOR MODERATE PAIN (unknown) (no (unknown) (unknown) TAKE ONE TABLET (units (unknown) date) BY MOUTH ONE TIME unknown) DAILY (unknown) (no (unknown) (unknown) TAKE ONE TABLET (units (unknown) date) BY MOUTH TWICE unknown) DAILY (unknown) (no (unknown) (unknown) Temperature 98.2 (units (unknown) date) F 10/18/22 17:00 unknown) (unknown) (no (unknown) (unknown) Temperature 98.2 (units (unknown) date) F unknown) (unknown) (no (unknown) (unknown) Thyroid cancer (units (unknown) date) unknown) (unknown) (no (unknown) (unknown) Thyroid disease (units (unknown) date) unknown) (unknown) (no (unknown) (unknown) Time Seen by (units (u nknown) date) Provider: unknown) 10/18/22 18:24 (unknown) (no (unknown) (unknown) Type(s) of (units (unk nown) date) exercise: other unknown) (unknown) (no (unknown) (unknown) US scrotum Stat (units (unknown) date) unknown) (unknown) (no (unknown) (unknown) Vital Signs - 8 (units (unknown) date) hr unknown) (unknown) (no (unknown) (unknown) Vital Signs (units (un known) date) unknown) (unknown) (no (unknown) (unknown) Vital signs: (units (u nknown) date) unknown) (unknown) (no (unknown) (unknown) aerosol inhaler (units (unknown) date) (ProAir HFA) unknown) (unknown) (no (unknown) (unknown) albuterol (units (unkn own) date) sulfate 90 unknown) mcg/actuation 2 puff inhalation Q4HR 03/14/22 07/28/22 (unknown) (no (unknown) (unknown) albuterol (units (unkn own) date) sulfate [ProAir unknown) HFA] 90 mcg/actuation HFA aerosol inhaler (unknown) (no (unknown) (unknown) alcohol intake (units (unknown) date) frequency: 0-2 unknown) drinks per day (unknown) (no (unknown) (unknown) alfuzosin 10 mg (units (unknown) date) tablet,extended unknown) 10 mg PO DAILY uti 03/14/22 07/28/22 (unknown) (no (unknown) (unknown) alfuzosin (units (unkn own) date) [Uroxatral] 10 mg unknown) tablet extended release 24 hr (unknown) (no (unknown) (unknown) apixaban 5 mg (units ( unknown) date) tablet (Eliquis) unknown) 5 mg PO BID afib 03/14/22 07/28/22 (unknown) (no (unknown) (unknown) duloxetine [From (units (unknown) date) Cymbalta] Allergy unknown) Intermediate Palpitation Verified 07/28/22 (unknown) (no (unknown) (unknown) frequency: other (units (unknown) date) unknown) (unknown) (no (unknown) (unknown) gabapentin (units (unk nown) date) Allergy Severe unknown) Hallucinati Verified 07/28/22 10:11 (unknown) (no (unknown) (unknown) household (units (unkn own) date) members: family unknown) (unknown) (no (unknown) (unknown) levothyroxine (units ( unknown) date) 175 mcg tablet unknown) 175 mcg PO DAILY thyroid ca 03/14/22 07/28/22 (unknown) (no (unknown) (unknown) levothyroxine (units ( unknown) date) [Synthroid] 175 unknown) mcg tablet (unknown) (no (unknown) (unknown) lisinopril 2.5 (units (unknown) date) mg tablet unknown) (Zestril) 2.5 mg PO DAILY HTN 03/14/22 07/28/22 (unknown) (no (unknown) (unknown) lisinopril (units (unk nown) date) [Zestril] 2.5 mg unknown) tablet (unknown) (no (unknown) (unknown) marital status: (units (unknown) date) unmarried,single unknown) (unknown) (no (unknown) (unknown) metoprolol (units (unk nown) date) tartrate 25 mg unknown) tablet 12.5 mg PO BID 03/14/22 07/28/22 (unknown) (no (unknown) (unknown) metoprolol (units (unk nown) date) tartrate 25 mg unknown) tablet (unknown) (no (unknown) (unknown) naloxone 4 (units (unk nown) date) mg/actuation unknown) nasal 1 spray intranasal PRN Sedation 03/14/22 07/28/22 (unknown) (no (unknown) (unknown) naloxone (units (unkno wn) date) [Narcan] 4 unknown) mg/actuation spray,non-aerosol (unknown) (no (unknown) (unknown) ng (units (unkno wn) date) unknown) (unknown) (no (unknown) (unknown) nortriptyline (units ( unknown) date) Allergy Severe unknown) Chest Pain Verified 07/28/22 10:11 (unknown) (no (unknown) (unknown) number of (units (unkn own) date) children: 0 unknown) (unknown) (no (unknown) (unknown) oxycodone 10 mg (units (unknown) date) tablet 10 mg PO unknown) Q4-5H CHRONIC 03/14/22 07/28/22 (unknown) (no (unknown) (unknown) oxycodone 10 mg (units (unknown) date) tablet unknown) (unknown) (no (unknown) (unknown) pregabalin (units (unk nown) date) Allergy unknown) Intermediate VISION Verified 07/28/22 10:11 (unknown) (no (unknown) (unknown) release 24 hr (units ( unknown) date) (Uroxatral) unknown) (unknown) (no (unknown) (unknown) s (units (unkno wn) date) unknown) (unknown) (no (unknown) (unknown) solifenacin 5 mg (units (unknown) date) tablet 5 mg PO unknown) DAILY 06/30/22 07/28/22 (unknown) (no (unknown) (unknown) solifenacin 5 mg (units (unknown) date) tablet unknown) (unknown) (no (unknown) (unknown) spray (Narcan) (units (unknown) date) unknown) Result panel 4 (unknown) (no (unknown) (unknown) (no value) (units (unk nown) date) unknown) (unknown) (no (unknown) (unknown) (Synthroid) (units (un known) date) unknown) (unknown) (no (unknown) (unknown) *Please continue (units (unknown) date) to take your unknown) regular medications as directed. (unknown) (no (unknown) (unknown) *Please follow up (units (unknown) date) with your primary unknown) urologist in 2-3 days, call for an (unknown) (no (unknown) (unknown) *Return to (units (unk nown) date) Emergency unknown) Department if you should have any new, worsening or (unknown) (no (unknown) (unknown) *What to do: (units (u nknown) date) unknown) (unknown) (no (unknown) (unknown) *You have been (units (unknown) date) diagnosed with unknown) [testicular pain after injury. As we discussed (unknown) (no (unknown) (unknown) 10/18/22 17:39 (units (unknown) date) unknown) (unknown) (no (unknown) (unknown) 10/18/22 (units (unkno wn) date) unknown) (unknown) (no (unknown) (unknown) [id number] (units (unkno wn) date) unknown) (unknown) (no (unknown) (unknown) 1 spray (units (unkno wn) date) INTRANASAL PRN unknown) (Reason: Sedation) (unknown) (no (unknown) (unknown) 10 mg PO DAILY (units (unknown) date) unknown) (unknown) (no (unknown) (unknown) 10 mg PO Q4-5H (units (unknown) date) unknown) (unknown) (no (unknown) (unknown) 10:11 (units (unkno wn) date) unknown) (unknown) (no (unknown) (unknown) 12 point review (units (unknown) date) of systems is unknown) negative except for those stated above (unknown) (no (unknown) (unknown) 12.5 mg PO BID (units (unknown) date) unknown) (unknown) (no (unknown) (unknown) [address] [place] [address] (units (unknown) date) unknown) (unknown) (no (unknown) (unknown) 175 mcg PO DAILY (units (unknown) date) unknown) (unknown) (no (unknown) (unknown) 17:00 (units (unkno wn) date) unknown) (unknown) (no (unknown) (unknown) 2 puff INHALATION (units (unknown) date) Q4HR unknown) (unknown) (no (unknown) (unknown) 2.5 mg PO DAILY (units (unknown) date) unknown) (unknown) (no (unknown) (unknown) 5 mg PO BID (units (un known) date) unknown) (unknown) (no (unknown) (unknown) 5 mg PO DAILY (units ( unknown) date) unknown) (unknown) (no (unknown) (unknown) 67-year-old male (units (unknown) date) former smoker with unknown) a history of a neoplasm on his kidney, (unknown) (no (unknown) (unknown) ? (units (unkno wn) date) unknown) (unknown) (no (unknown) (unknown) ABD: Abdomen is (units (unknown) date) soft and unknown) nontender. There is no guarding or rebound. Bowel (unknown) (no (unknown) (unknown) Accession Number: (units (unknown) date) [id number] ?? unknown) (unknown) (no (unknown) (unknown) Acct:[id number] (units (unknown) date) unknown) (unknown) (no (unknown) (unknown) Activity (units (unkno wn) date) Restrictions/Addit unknown) ional Instructions: (unknown) (no (unknown) (unknown) Age/Sex: 67 / M (units (unknown) date) unknown) (unknown) (no (unknown) (unknown) Allergies (units (unkn own) date) unknown) (unknown) (no (unknown) (unknown) Allergy/AdvReac (units (unknown) date) Type Severity unknown) Reaction Status Date / Time (unknown) (no (unknown) (unknown) [place]units ( unknown) date[place] [id number] unknown) (unknown) (no (unknown) (unknown) Approved by: (units (u nknown) date) Deandre Sanchez M.D. on unknown) 10/18/2022 at 19:24 ? (unknown) (no (unknown) (unknown) Arthritis (units (unkn own) date) unknown) (unknown) (no (unknown) (unknown) Blood Pressure (units (unknown) date) 114/70 10/18/22 unknown) 17:00 (unknown) (no (unknown) (unknown) Blood Pressure (units (unknown) date) unknown) (unknown) (no (unknown) (unknown) CARDIOVASCULAR: (units (unknown) date) Denies chest pain, unknown) palpitations, orthopnea, edema, (unknown) (no (unknown) (unknown) CHANGES (units (unkno wn) date) unknown) (unknown) (no (unknown) (unknown) CHEST: Lungs are (units (unknown) date) clear to unknown) auscultation bilaterally and free of wheezes, rales, (unknown) (no (unknown) (unknown) COMPARISON:? (units (u nknown) date) [facility], unknown) , SCROTUM, 06/01/2022, 13:07. (unknown) (no (unknown) (unknown) COPD (chronic (units ( unknown) date) obstructive unknown) pulmonary disease) (unknown) (no (unknown) (unknown) Chest pain (units (unk nown) date) unknown) (unknown) (no (unknown) (unknown) Chief complaint: (units (unknown) date) Urogenital-Male unknown) (unknown) (no (unknown) (unknown) Clinical (units (unkno wn) date) Impression: unknown) (unknown) (no (unknown) (unknown) Cluster of cysts (units (unknown) date) in the right unknown) scrotum again seen measuring up to 2.4 (unknown) (no (unknown) (unknown) Colon cancer (units (u nknown) date) unknown) (unknown) (no (unknown) (unknown) Color and pulse (units (unknown) date) Doppler unknown) interrogation was performed of both testicles.? (unknown) (no (unknown) (unknown) Coronary artery (units (unknown) date) disease involving unknown) [place] heart (unknown) (no (unknown) (unknown) Coronary artery (units (unknown) date) disease unknown) (unknown) (no (unknown) (unknown) Course (units (unkno wn) date) unknown) (unknown) (no (unknown) (unknown) : 1955 (units (unknown) date) Acct:[id number] unknown) (unknown) (no (unknown) (unknown) : 1955 (units (unknown) date) unknown) (unknown) (no (unknown) (unknown) Date of Service: (units (unknown) date) 10/18/22 unknown) (unknown) (no (unknown) (unknown) Departure (units (unkn own) date) unknown) (unknown) (no (unknown) (unknown) Dictated by: (units (u nknown) date) Deandre Sanchez M.D. on unknown) 10/18/2022 at 19:21 ? ? (unknown) (no (unknown) (unknown) Discharge Plan (units (unknown) date) unknown) (unknown) (no (unknown) (unknown) Discontinued (units (u nknown) date) Medications unknown) (unknown) (no (unknown) (unknown) Documented By: SHARIF (units (unknown) date) unknown) (unknown) (no (unknown) (unknown) Doppler:? Color (units (unknown) date) and pulse Doppler unknown) demonstrate normal and symmetric arterial flow (unknown) (no (unknown) (unknown) ED Orders (units (unkn own) date) unknown) (unknown) (no (unknown) (unknown) ER Physician: (units ( unknown) date) Benny Bush D.O. unknown) (unknown) (no (unknown) (unknown) EXT: Full painless (units (unknown) date) ROM of all unknown) extremities with no loss of sensation or strength. (unknown) (no (unknown) (unknown) EYES: Pupils are (units (unknown) date) equal, round, and unknown) reactive to light and accommodation. (unknown) (no (unknown) (unknown) Eliquis 5 mg (units (u nknown) date) tablet unknown) (unknown) (no (unknown) (unknown) Emergency Report (units (unknown) date) unknown) (unknown) (no (unknown) (unknown) Epididymis within (units (unknown) date) normal limits. unknown) (unknown) (no (unknown) (unknown) Exam Narrative: (units (unknown) date) unknown) (unknown) (no (unknown) (unknown) Exam (units (unkno wn) date) unknown) (unknown) (no (unknown) (unknown) Extraoccular (units (u nknown) date) muscles are intact unknown) bilaterally. There is no subconjunctival (unknown) (no (unknown) (unknown) FINDINGS:? (units (unk nown) date) unknown) (unknown) (no (unknown) (unknown) FOR SUSPECTED (units ( unknown) date) OPIOID OVERDOSE unknown) ADMINISTER A SINGLE SPRAY INTO 1 NOSTRIL, THEN (unknown) (no (unknown) (unknown) Family History (units (unknown) date) (Reviewed 10/18/22 unknown) @ 20:03 by Benny Bush DO) (unknown) (no (unknown) (unknown) Family/Other (units (u nknown) date) Cancer unknown) (unknown) (no (unknown) (unknown) GASTROINTESTINAL: (units (unknown) date) Denies nausea, unknown) vomiting, abdominal pain, diarrhea, (unknown) (no (unknown) (unknown) GEN: AOx3 and in (units (unknown) date) mild distress unknown) (unknown) (no (unknown) (unknown) GENERAL: Denies (units (unknown) date) chills, fatigue, unknown) malaise, fever, sweats. (unknown) (no (unknown) (unknown) GERD (units (unkno wn) date) (gastroesophageal unknown) reflux disease) (unknown) (no (unknown) (unknown) : See HPI (units (un known) date) unknown) (unknown) (no (unknown) (unknown) : examined in (units (unknown) date) standing position, unknown) tender on R side of scrotum, no significant (unknown) (no (unknown) (unknown) General (units (unkno wn) date) unknown) (unknown) (no (unknown) (unknown) Grandmother (units (un known) date) Cancer unknown) (unknown) (no (unknown) (unknown) H/O abdominal (units ( unknown) date) surgery unknown) (unknown) (no (unknown) (unknown) HEENT: Denies (units ( unknown) date) sinus pain, ear unknown) pain, sore throat, difficulty swallowing, (unknown) (no (unknown) (unknown) HPI - Male (units (unk nown) date) Genitourinary unknown) (unknown) (no (unknown) (unknown) HPI Narrative: (units (unknown) date) unknown) (unknown) (no (unknown) (unknown) High blood (units (unk nown) date) pressure unknown) (unknown) (no (unknown) (unknown) History of (units (unk nown) date) Present Illness unknown) (unknown) (no (unknown) (unknown) History of colon (units (unknown) date) surgery unknown) (unknown) (no (unknown) (unknown) History of hernia (units (unknown) date) surgery unknown) (unknown) (no (unknown) (unknown) History of (units (unk nown) date) testicular surgery unknown) (unknown) (no (unknown) (unknown) History of (units (unk nown) date) thoracic surgery unknown) (unknown) (no (unknown) (unknown) History of (units (unk nown) date) thyroid surgery unknown) (unknown) (no (unknown) (unknown) Home Medications (units (unknown) date) unknown) (unknown) (no (unknown) (unknown) Hydromorphone HCl (units (unknown) date) (Hydromorphone 1 unknown) Mg Inj) 1 mg IM NOW ONE (unknown) (no (unknown) (unknown) Hyperlipidemia (units (unknown) date) unknown) (unknown) (no (unknown) (unknown) Hypertension (units (u nknown) date) unknown) (unknown) (no (unknown) (unknown) IMPRESSION:? No (units (unknown) date) evidence of unknown) torsion.? Trace left hydrocele.? Other findings as (unknown) (no (unknown) (unknown) INDICATIONS:? (units ( unknown) date) PAIN unknown) (unknown) (no (unknown) (unknown) INHALE 2 PUFFS BY (units (unknown) date) MOUTH EVERY FOUR unknown) HOURS NEEDED FOR WHEEZING OR SHORTNESS (unknown) (no (unknown) (unknown) Imaging Data (units (u nknown) date) unknown) (unknown) (no (unknown) (unknown) 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 unknown) (unknown) (no (unknown) (unknown) Initial Vital (units ( unknown) date) Signs unknown) (unknown) (no (unknown) (unknown) Initial Vital (units ( unknown) date) Signs: unknown) (unknown) (no (unknown) (unknown) Instructions: DI (units (unknown) date) for Testicular unknown) Pain (unknown) (no (unknown) (unknown) [facility] (units (unknown) date) [address] unknown) [place] [id number] (unknown) (no (unknown) (unknown) [facility] (units (unknown) date) unknown) (unknown) (no (unknown) (unknown) Stuart Thibodeaux, (units (unknown) date) [Physician] unknown) (unknown) (no (unknown) (unknown) Jacinda Chou DO (units ( unknown) date) [Primary Care unknown) Provider] (unknown) (no (unknown) (unknown) Label Comments: (units (unknown) date) unknown) (unknown) (no (unknown) (unknown) Last Admin: (units (un known) date) 10/18/22 18:06 unknown) Dose: 1 mg (unknown) (no (unknown) (unknown) Left:? Left (units (un known) date) testis measures unknown) 3.4 x 2 x 2.8 centimeters.? Overall echotexture is (unknown) (no (unknown) (unknown) Loc: ED (units (unkno wn) date) unknown) (unknown) (no (unknown) (unknown) MDM - Male (units (unk nown) date) Genitourinary unknown) (unknown) (no (unknown) (unknown) MR#: [id number] (units (unknown) date) unknown) (unknown) (no (unknown) (unknown) MUSCULOSKELETAL: (units (unknown) date) denies weakness, unknown) joint pain, or bony pain (unknown) (no (unknown) (unknown) Medical History (units (unknown) date) (Reviewed 10/18/22 unknown) @ 20:03 by Benny Bush DO) (unknown) (no (unknown) (unknown) Medication (units (unk nown) date) Instructions unknown) Recorded Confirmed (unknown) (no (unknown) (unknown) Mode of arrival: (units (unknown) date) Ambulatory unknown) (unknown) (no (unknown) (unknown) Mother Cancer (units ( unknown) date) unknown) (unknown) (no (unknown) (unknown) NEUROLOGIC: (units (un known) date) Denies weakness, unknown) headache, numbness, change in speech, confusion, (unknown) (no (unknown) (unknown) Narrative (units (unkn own) date) unknown) (unknown) (no (unknown) (unknown) Narrative: (units (unk nown) date) unknown) (unknown) (no (unknown) (unknown) 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 unknown) (unknown) (no (unknown) (unknown) OF BREATH (units (unkn own) date) unknown) (unknown) (no (unknown) (unknown) Ordered: (units (unkno wn) date) unknown) (unknown) (no (unknown) (unknown) Ordering (units (unkno wn) date) Provider: unknown) Selina Barajas D.O. (unknown) (no (unknown) (unknown) Orders (units (unkno wn) date) unknown) (unknown) (no (unknown) (unknown) Oxygen Delivery (units (unknown) date) Method 10/18/22 unknown) 17:00 (unknown) (no (unknown) (unknown) Oxygen Delivery (units (unknown) date) Method Room Air unknown) (unknown) (no (unknown) (unknown) PROCEDURE:? US (units (unknown) date) SCROTUM unknown) (unknown) (no (unknown) (unknown) PSYCHIATRIC: No (units (unknown) date) concerning unknown) psychosocial issues. (unknown) (no (unknown) (unknown) Pain in right (units ( unknown) date) testicle unknown) (unknown) (no (unknown) (unknown) Patient (units (unkno wn) date) Disposition: Home unknown) (unknown) (no (unknown) (unknown) Patient History (units (unknown) date) unknown) (unknown) (no (unknown) (unknown) Patient: (units (unkno wn) date) Zia Hernandez unknown) MR#: [id number] (unknown) (no (unknown) (unknown) Patient: (units (unkno wn) date) Zia Hernandez unknown) (unknown) (no (unknown) (unknown) Peripheral (units (unk nown) date) vascular disease unknown) (unknown) (no (unknown) (unknown) Prescriptions: (units (unknown) date) unknown) (unknown) (no (unknown) (unknown) Procedure: US (units ( unknown) date) scrotum unknown) (unknown) (no (unknown) (unknown) Pulse Oximetry 97 (units (unknown) date) 10/18/22 17:00 unknown) (unknown) (no (unknown) (unknown) Pulse Oximetry 97 (units (unknown) date) unknown) (unknown) (no (unknown) (unknown) Pulse Rate 57 L (units (unknown) date) 10/18/22 17:00 unknown) (unknown) (no (unknown) (unknown) Pulse Rate 57 L (units (unknown) date) unknown) (unknown) (no (unknown) (unknown) RESPIRATORY: (units (u nknown) date) Denies dyspnea, unknown) cough, wheezing, hemoptysis, sputum. (unknown) (no (unknown) (unknown) RESPONSE. (units (unkn own) date) unknown) (unknown) (no (unknown) (unknown) Radiologist's (units ( unknown) date) Impression: unknown) (unknown) (no (unknown) (unknown) Real-time (units (unkn own) date) scanning was unknown) performed of the scrotum and testicles, with image (unknown) (no (unknown) (unknown) Referrals: (units (unk nown) date) unknown) (unknown) (no (unknown) (unknown) Related Data (units (u nknown) date) unknown) (unknown) (no (unknown) (unknown) Respiratory Rate (units (unknown) date) 18 10/18/22 17:00 unknown) (unknown) (no (unknown) (unknown) Respiratory Rate (units (unknown) date) 18 unknown) (unknown) (no (unknown) (unknown) Review of Systems (units (unknown) date) unknown) (unknown) (no (unknown) (unknown) Right epididymis (units (unknown) date) is surgically unknown) absent, possibly with some residual tissue, also (unknown) (no (unknown) (unknown) Right:? Right (units ( unknown) date) testicle measures unknown) 3.7 x 1.7 x 2.7 centimeters.? [place]ch[place] is (unknown) (no (unknown) (unknown) SEEK EMERGENCY (units (unknown) date) MEDICAL CARE. MAY unknown) REPEAT EVERY 2-3 MINUTES IF MINIMAL OR NO (unknown) (no (unknown) (unknown) SKIN: Denies (units (u nknown) date) rash, skin unknown) lesions, or other (unknown) (no (unknown) (unknown) SKIN: Warm, pink, (units (unknown) date) and dry. No unknown) erythema or rash (unknown) (no (unknown) (unknown) Signed By: (units (unk nown) date) unknown) (unknown) (no (unknown) (unknown) Signed (units (unkno wn) date) unknown) (unknown) (no (unknown) (unknown) Sister Thyroid (units (unknown) date) cancer unknown) (unknown) (no (unknown) (unknown) Smoking Status: (units (unknown) date) Former smoker unknown) (unknown) (no (unknown) (unknown) Social History (units (unknown) date) (Reviewed 10/18/22 unknown) @ 20:03 by Benny Bush DO) (unknown) (no (unknown) (unknown) Source: patient (units (unknown) date) unknown) (unknown) (no (unknown) (unknown) Stand Alone (units (un known) date) Forms: Patient unknown) Portal/API (unknown) (no (unknown) (unknown) Stated complaint: (units (unknown) date) thinks he ruptured unknown) a testicle (unknown) (no (unknown) (unknown) Stop: 10/18/22 (units (unknown) date) 18:03 unknown) (unknown) (no (unknown) (unknown) Substance Use (units ( unknown) date) Type: marijuana unknown) (unknown) (no (unknown) (unknown) Surgical History (units (unknown) date) (Reviewed 10/18/22 unknown) @ 20:03 by Benny Bush DO) (unknown) (no (unknown) (unknown) TAKE 1/2 TABLET (units (unknown) date) BY MOUTH TWICE unknown) DAILY (unknown) (no (unknown) (unknown) TAKE ONE TABLET (units (unknown) date) BY MOUTH EVERY SIX unknown) HOURS NEEDED FOR MODERATE PAIN (unknown) (no (unknown) (unknown) TAKE ONE TABLET (units (unknown) date) BY MOUTH ONE TIME unknown) DAILY (unknown) (no (unknown) (unknown) TAKE ONE TABLET (units (unknown) date) BY MOUTH TWICE unknown) DAILY (unknown) (no (unknown) (unknown) TECHNIQUE:? (units (un known) date) unknown) (unknown) (no (unknown) (unknown) Temperature 98.2 (units (unknown) date) F 10/18/22 17:00 unknown) (unknown) (no (unknown) (unknown) Temperature 98.2 (units (unknown) date) F unknown) (unknown) (no (unknown) (unknown) Thyroid cancer (units (unknown) date) unknown) (unknown) (no (unknown) (unknown) Thyroid disease (units (unknown) date) unknown) (unknown) (no (unknown) (unknown) Time Seen by (units (u nknown) date) Provider: 10/18/22 unknown) 18:24 (unknown) (no (unknown) (unknown) Type(s) of (units (unk nown) date) exercise: other unknown) (unknown) (no (unknown) (unknown) US Scrotum: (units (un known) date) unknown) (unknown) (no (unknown) (unknown) US scrotum Stat (units (unknown) date) unknown) (unknown) (no (unknown) (unknown) Ultrasound Report (units (unknown) date) unknown) (unknown) (no (unknown) (unknown) Vital Signs - 8 (units (unknown) date) hr unknown) (unknown) (no (unknown) (unknown) Vital Signs (units (un known) date) unknown) (unknown) (no (unknown) (unknown) Vital signs: (units (u nknown) date) unknown) (unknown) (no (unknown) (unknown) [ ] New (units (unkno wn) date) medication unknown) prescriptions sent to your pharmacy: [ ] (unknown) (no (unknown) (unknown) [ ] New (units (unkno wn) date) medication written unknown) as a paper prescription (unknown) (no (unknown) (unknown) [x ] No new (units (un known) date) medications given unknown) (unknown) (no (unknown) (unknown) above, (units (unkno wn) date) unknown) (unknown) (no (unknown) (unknown) aerosol inhaler (units (unknown) date) (ProAir HFA) unknown) (unknown) (no (unknown) (unknown) albuterol sulfate (units (unknown) date) 90 mcg/actuation 2 unknown) puff inhalation Q4HR 03/14/22 07/28/22 (unknown) (no (unknown) (unknown) albuterol sulfate (units (unknown) date) [ProAir HFA] 90 unknown) mcg/actuation HFA aerosol inhaler (unknown) (no (unknown) (unknown) alcohol intake (units (unknown) date) frequency: 0-2 unknown) drinks per day (unknown) (no (unknown) (unknown) alfuzosin 10 mg (units (unknown) date) tablet,extended 10 unknown) mg PO DAILY uti 03/14/22 07/28/22 (unknown) (no (unknown) (unknown) alfuzosin (units (unkn own) date) [Uroxatral] 10 mg unknown) tablet extended release 24 hr (unknown) (no (unknown) (unknown) apixaban 5 mg (units ( unknown) date) tablet (Eliquis) 5 unknown) mg PO BID afib 03/14/22 07/28/22 (unknown) (no (unknown) (unknown) appointment. Let (units (unknown) date) them know you were unknown) seen in the Emergency Department and that we (unknown) (no (unknown) (unknown) ask that you be (units (unknown) date) seen in follow up. unknown) We will electronically transmit a record of (unknown) (no (unknown) (unknown) centimeters. (units (u nknown) date) unknown) (unknown) (no (unknown) (unknown) colitis, ostomy (units (unknown) date) presents with pain unknown) in his testicle after an injury earlier (unknown) (no (unknown) (unknown) concerning (units (unk nown) date) symptoms, such as unknown) [fever greater than 101 F, shaking chills, (unknown) (no (unknown) (unknown) constipation, (units ( unknown) date) melena. unknown) (unknown) (no (unknown) (unknown) dizziness. (units (unk nown) date) unknown) (unknown) (no (unknown) (unknown) documentation.? (units (unknown) date) unknown) (unknown) (no (unknown) (unknown) duloxetine [From (units (unknown) date) Cymbalta] Allergy unknown) Intermediate Palpitation Verified 07/28/22 (unknown) (no (unknown) (unknown) favored stable. (units (unknown) date) unknown) (unknown) (no (unknown) (unknown) frequency: other (units (unknown) date) unknown) (unknown) (no (unknown) (unknown) gabapentin (units (unk nown) date) Allergy Severe unknown) Hallucinati Verified 07/28/22 10:11 (unknown) (no (unknown) (unknown) gallops. There is (units (unknown) date) no chest wall unknown) tenderness. (unknown) (no (unknown) (unknown) he is concerned (units (unknown) date) that he ruptured unknown) his testicle. He has pain but no significant (unknown) (no (unknown) (unknown) hemorrhage or (units ( unknown) date) exudate. unknown) (unknown) (no (unknown) (unknown) heterogeneous.? (units (unknown) date) Prominent rete unknown) testes and small cystic foci again seen. (unknown) (no (unknown) (unknown) homogeneous.? (units ( unknown) date) Trace left unknown) hydrocele.? No varicocele. (unknown) (no (unknown) (unknown) household (units (unkn own) date) members: family unknown) (unknown) (no (unknown) (unknown) in both (units (unkno wn) date) unknown) (unknown) (no (unknown) (unknown) levothyroxine 175 (units (unknown) date) mcg tablet 175 mcg unknown) PO DAILY thyroid ca 03/14/22 07/28/22 (unknown) (no (unknown) (unknown) levothyroxine (units ( unknown) date) [Synthroid] 175 unknown) mcg tablet (unknown) (no (unknown) (unknown) lisinopril 2.5 mg (units (unknown) date) tablet (Zestril) unknown) 2.5 mg PO DAILY HTN 03/14/22 07/28/22 (unknown) (no (unknown) (unknown) lisinopril (units (unk nown) date) [Zestril] 2.5 mg unknown) tablet (unknown) (no (unknown) (unknown) marital status: (units (unknown) date) unmarried,single unknown) (unknown) (no (unknown) (unknown) metoprolol (units (unk nown) date) tartrate 25 mg unknown) tablet 12.5 mg PO BID 03/14/22 07/28/22 (unknown) (no (unknown) (unknown) metoprolol (units (unk nown) date) tartrate 25 mg unknown) tablet (unknown) (no (unknown) (unknown) naloxone 4 (units (unk nown) date) mg/actuation nasal unknown) 1 spray intranasal PRN Sedation 03/14/22 07/28/22 (unknown) (no (unknown) (unknown) naloxone [Narcan] (units (unknown) date) 4 mg/actuation unknown) spray,non-aerosol (unknown) (no (unknown) (unknown) ng (units (unkno wn) date) unknown) (unknown) (no (unknown) (unknown) nortriptyline (units ( unknown) date) Allergy Severe unknown) Chest Pain Verified 07/28/22 10:11 (unknown) (no (unknown) (unknown) noted on (units (unkno wn) date) unknown) (unknown) (no (unknown) (unknown) number of (units (unkn own) date) children: 0 unknown) (unknown) (no (unknown) (unknown) of the bed and (units (unknown) date) the railing and unknown) when he stood up he felt a pulling sensation and (unknown) (no (unknown) (unknown) or rhonchi. Heart (units (unknown) date) rate is regular unknown) rhythm, there are no murmurs, clicks, rubs, or (unknown) (no (unknown) (unknown) otherwise well (units (unknown) date) and free of unknown) complaint (unknown) (no (unknown) (unknown) oxycodone 10 mg (units (unknown) date) tablet 10 mg PO unknown) Q4-5H CHRONIC 03/14/22 07/28/22 (unknown) (no (unknown) (unknown) oxycodone 10 mg (units (unknown) date) tablet unknown) (unknown) (no (unknown) (unknown) pregabalin (units (unk nown) date) Allergy unknown) Intermediate VISION Verified 07/28/22 10:11 (unknown) (no (unknown) (unknown) prior ultrasound. (units (unknown) date) unknown) (unknown) (no (unknown) (unknown) release 24 hr (units ( unknown) date) (Uroxatral) unknown) (unknown) (no (unknown) (unknown) s (units (unkno wn) date) unknown) (unknown) (no (unknown) (unknown) seizures, (units (unkn own) date) incoordination. unknown) (unknown) (no (unknown) (unknown) significant (units (un known) date) abnormal findings unknown) such as rupture, bleeding or twisting of the (unknown) (no (unknown) (unknown) solifenacin 5 mg (units (unknown) date) tablet 5 mg PO unknown) DAILY 06/30/22 07/28/22 (unknown) (no (unknown) (unknown) solifenacin 5 mg (units (unknown) date) tablet unknown) (unknown) (no (unknown) (unknown) sounds are normal (units (unknown) date) in all 4 unknown) quadrants. There is no mass or organomegaly. (unknown) (no (unknown) (unknown) spray (Narcan) (units (unknown) date) unknown) (unknown) (no (unknown) (unknown) swelling or (units (un known) date) discoloration. He unknown) denies any difficulty producing urine and is (unknown) (no (unknown) (unknown) swelling, (units (unkn own) date) discoloration or unknown) obvious external manifestation of injury (unknown) (no (unknown) (unknown) testicle] (units (unkn own) date) unknown) (unknown) (no (unknown) (unknown) testicles.? (units (un known) date) unknown) (unknown) (no (unknown) (unknown) today's note (units (u nknown) date) unknown) (unknown) (no (unknown) (unknown) today. He was (units ( unknown) date) laying down and unknown) states it is scrotum got caught between the edge (unknown) (no (unknown) (unknown) worsening pain, (units (unknown) date) persistent unknown) vomiting or other bothersome symptoms] (unknown) (no (unknown) (unknown) your history and (units (unknown) date) physical exam are unknown) reassuring and ultrasound demonstrates no Result panel 5 (unknown) (no (unknown) (unknown) (no value) (units (unk nown) date) unknown) (unknown) (no (unknown) (unknown) <Electronically (units (unknown) date) signed by Benny unknownReanna Bush D.O.> (unknown) (no (unknown) (unknown) (Synthroid) (units (un known) date) unknown) (unknown) (no (unknown) (unknown) *Please continue (units (unknown) date) to take your unknown) regular medications as directed. (unknown) (no (unknown) (unknown) *Please follow up (units (unknown) date) with your primary unknown) urologist in 2-3 days, call for an (unknown) (no (unknown) (unknown) *Return to (units (unk nown) date) Emergency unknown) Department if you should have any new, worsening or (unknown) (no (unknown) (unknown) *What to do: (units (u nknown) date) unknown) (unknown) (no (unknown) (unknown) *You have been (units (unknown) date) diagnosed with unknown) [testicular pain after injury. As we discussed (unknown) (no (unknown) (unknown) 10/18/22 (units (unkno wn) date) unknown) (unknown) (no (unknown) (unknown) 10/19/22 1732 (units ( unknown) date) unknown) (unknown) (no (unknown) (unknown) [id number] (units (unkno wn) date) unknown) (unknown) (no (unknown) (unknown) 1 spray (units (unkno wn) date) INTRANASAL PRN unknown) (Reason: Sedation) (unknown) (no (unknown) (unknown) 10 mg PO DAILY (units (unknown) date) unknown) (unknown) (no (unknown) (unknown) 10 mg PO Q4-5H (units (unknown) date) unknown) (unknown) (no (unknown) (unknown) 10:11 (units (unkno wn) date) unknown) (unknown) (no (unknown) (unknown) 12 point review (units (unknown) date) of systems is unknown) negative except for those stated above (unknown) (no (unknown) (unknown) 12.5 mg PO BID (units (unknown) date) unknown) (unknown) (no (unknown) (unknown) [address] [place] [address] (units (unknown) date) unknown) (unknown) (no (unknown) (unknown) 175 mcg PO DAILY (units (unknown) date) unknown) (unknown) (no (unknown) (unknown) 17:00 (units (unkno wn) date) unknown) (unknown) (no (unknown) (unknown) 2 puff INHALATION (units (unknown) date) Q4HR unknown) (unknown) (no (unknown) (unknown) 2.5 mg PO DAILY (units (unknown) date) unknown) (unknown) (no (unknown) (unknown) 5 mg PO BID (units (un known) date) unknown) (unknown) (no (unknown) (unknown) 5 mg PO DAILY (units ( unknown) date) unknown) (unknown) (no (unknown) (unknown) 67-year-old male (units (unknown) date) former smoker with unknown) a history of a neoplasm on his kidney, (unknown) (no (unknown) (unknown) ? (units (unkno wn) date) unknown) (unknown) (no (unknown) (unknown) ABD: Abdomen is (units (unknown) date) soft and unknown) nontender. There is no guarding or rebound. Bowel (unknown) (no (unknown) (unknown) Accession Number: (units (unknown) date) [id number] ?? unknown) (unknown) (no (unknown) (unknown) Acct:[id number] (units (unknown) date) unknown) (unknown) (no (unknown) (unknown) Activity (units (unkno wn) date) Restrictions/Addit unknown) ional Instructions: (unknown) (no (unknown) (unknown) Age/Sex: 67 / M (units (unknown) date) unknown) (unknown) (no (unknown) (unknown) Allergies (units (unkn own) date) unknown) (unknown) (no (unknown) (unknown) Allergy/AdvReac (units (unknown) date) Type Severity unknown) Reaction Status Date / Time (unknown) (no (unknown) (unknown) [place], [place] (units ( unknown) date) [address] unknown) (unknown) (no (unknown) (unknown) Approved by: (units (u nknown) date) Deandre Sanchez M.D. on unknown) 10/18/2022 at 19:24 ? (unknown) (no (unknown) (unknown) Arthritis (units (unkn own) date) unknown) (unknown) (no (unknown) (unknown) Bedside Urine (units ( unknown) date) Bilirubin - unknown) Negative (unknown) (no (unknown) (unknown) Bedside Urine (units ( unknown) date) Glucose Negative unknown) (unknown) (no (unknown) (unknown) Bedside Urine (units ( unknown) date) Ketone - Negative unknown) (unknown) (no (unknown) (unknown) Bedside Urine (units ( unknown) date) Leukocytes - unknown) Negative (unknown) (no (unknown) (unknown) Bedside Urine (units ( unknown) date) Nitrite - Negative unknown) (unknown) (no (unknown) (unknown) Bedside Urine (units ( unknown) date) Occult Blood +/ unknown) (unknown) (no (unknown) (unknown) Bedside Urine (units ( unknown) date) Protein - Negative unknown) (unknown) (no (unknown) (unknown) Bedside Urine (units ( unknown) date) Urobilinogen - unknown) Negative (unknown) (no (unknown) (unknown) Bedside Urine pH (units (unknown) date) 6.0 unknown) (unknown) (no (unknown) (unknown) Blood Pressure (units (unknown) date) 114/70 10/18/22 unknown) 17:00 (unknown) (no (unknown) (unknown) Blood Pressure (units (unknown) date) 114 unknown) (unknown) (no (unknown) (unknown) CARDIOVASCULAR: (units (unknown) date) Denies chest pain, unknown) palpitations, orthopnea, edema, (unknown) (no (unknown) (unknown) CHANGES (units (unkno wn) date) unknown) (unknown) (no (unknown) (unknown) CHEST: Lungs are (units (unknown) date) clear to unknown) auscultation bilaterally and free of wheezes, rales, (unknown) (no (unknown) (unknown) COMPARISON:? (units (u nknown) date) [facility], unknown) US, US SCROTUM, 06/01/2022, 13:07. (unknown) (no (unknown) (unknown) COPD (chronic (units ( unknown) date) obstructive unknown) pulmonary disease) (unknown) (no (unknown) (unknown) Chest pain (units (unk nown) date) unknown) (unknown) (no (unknown) (unknown) Chief complaint: (units (unknown) date) Urogenital-Male unknown) (unknown) (no (unknown) (unknown) Clinical (units (unkno wn) date) Impression: unknown) (unknown) (no (unknown) (unknown) Cluster of cysts (units (unknown) date) in the right unknown) scrotum again seen measuring up to 2.4 (unknown) (no (unknown) (unknown) Colon cancer (units (u nknown) date) unknown) (unknown) (no (unknown) (unknown) Color and pulse (units (unknown) date) Doppler unknown) interrogation was performed of both testicles.? (unknown) (no (unknown) (unknown) Coronary artery (units (unknown) date) disease involving unknown) [place] heart (unknown) (no (unknown) (unknown) Coronary artery (units (unknown) date) disease unknown) (unknown) (no (unknown) (unknown) Course (units (unkno wn) date) unknown) (unknown) (no (unknown) (unknown) : 1955 (units (unknown) date) Acct:[id number] unknown) (unknown) (no (unknown) (unknown) : 1955 (units (unknown) date) unknown) (unknown) (no (unknown) (unknown) Date of Service: (units (unknown) date) 10/18/22 unknown) (unknown) (no (unknown) (unknown) Departure (units (unkn own) date) unknown) (unknown) (no (unknown) (unknown) Dictated by: (units (u nknown) date) Deandre Sanchez M.D. on unknown) 10/18/2022 at 19:21 ? ? (unknown) (no (unknown) (unknown) Discharge Plan (units (unknown) date) unknown) (unknown) (no (unknown) (unknown) Discontinued (units (u nknown) date) Medications unknown) (unknown) (no (unknown) (unknown) Documented By: KB (units (unknown) date) unknown) (unknown) (no (unknown) (unknown) Doppler:? Color (units (unknown) date) and pulse Doppler unknown) demonstrate normal and symmetric arterial flow (unknown) (no (unknown) (unknown) ER Physician: (units ( unknown) date) Benny Bush D.O. unknown) (unknown) (no (unknown) (unknown) EXT: Full painless (units (unknown) date) ROM of all unknown) extremities with no loss of sensation or strength. (unknown) (no (unknown) (unknown) EYES: Pupils are (units (unknown) date) equal, round, and unknown) reactive to light and accommodation. (unknown) (no (unknown) (unknown) Eliquis 5 mg (units (u nknown) date) tablet unknown) (unknown) (no (unknown) (unknown) Emergency Report (units (unknown) date) unknown) (unknown) (no (unknown) (unknown) Epididymis within (units (unknown) date) normal limits. unknown) (unknown) (no (unknown) (unknown) Esterase (units (unkno wn) date) unknown) (unknown) (no (unknown) (unknown) Exam Narrative: (units (unknown) date) unknown) (unknown) (no (unknown) (unknown) Exam (units (unkno wn) date) unknown) (unknown) (no (unknown) (unknown) Extraoccular (units (u nknown) date) muscles are intact unknown) bilaterally. There is no subconjunctival (unknown) (no (unknown) (unknown) FINDINGS:? (units (unk nown) date) unknown) (unknown) (no (unknown) (unknown) FOR SUSPECTED (units ( unknown) date) OPIOID OVERDOSE unknown) ADMINISTER A SINGLE SPRAY INTO 1 NOSTRIL, THEN (unknown) (no (unknown) (unknown) Family History (units (unknown) date) (Reviewed 10/18/22 unknown) @ 20:03 by Benny Bush DO) (unknown) (no (unknown) (unknown) Family/Other (units (u nknown) date) Cancer unknown) (unknown) (no (unknown) (unknown) Findings and (units (u nknown) date) discharge unknown) diagnosis discussed with patient/family followed by (unknown) (no (unknown) (unknown) GASTROINTESTINAL: (units (unknown) date) Denies nausea, unknown) vomiting, abdominal pain, diarrhea, (unknown) (no (unknown) (unknown) GEN: AOx3 and in (units (unknown) date) mild distress unknown) (unknown) (no (unknown) (unknown) GENERAL: Denies (units (unknown) date) chills, fatigue, unknown) malaise, fever, sweats. (unknown) (no (unknown) (unknown) GERD (units (unkno wn) date) (gastroesophageal unknown) reflux disease) (unknown) (no (unknown) (unknown) : See HPI (units (un known) date) unknown) (unknown) (no (unknown) (unknown) : examined in (units (unknown) date) standing position, unknown) tender on R side of scrotum, no significant (unknown) (no (unknown) (unknown) General (units (unkno wn) date) unknown) (unknown) (no (unknown) (unknown) Grandmother (units (un known) date) Cancer unknown) (unknown) (no (unknown) (unknown) H/O abdominal (units ( unknown) date) surgery unknown) (unknown) (no (unknown) (unknown) HEENT: Denies (units ( unknown) date) sinus pain, ear unknown) pain, sore throat, difficulty swallowing, (unknown) (no (unknown) (unknown) HPI - Male (units (unk nown) date) Genitourinary unknown) (unknown) (no (unknown) (unknown) HPI Narrative: (units (unknown) date) unknown) (unknown) (no (unknown) (unknown) High blood (units (unk nown) date) pressure unknown) (unknown) (no (unknown) (unknown) History of (units (unk nown) date) Present Illness unknown) (unknown) (no (unknown) (unknown) History of colon (units (unknown) date) surgery unknown) (unknown) (no (unknown) (unknown) History of hernia (units (unknown) date) surgery unknown) (unknown) (no (unknown) (unknown) History of (units (unk nown) date) testicular surgery unknown) (unknown) (no (unknown) (unknown) History of (units (unk nown) date) thoracic surgery unknown) (unknown) (no (unknown) (unknown) History of (units (unk nown) date) thyroid surgery unknown) (unknown) (no (unknown) (unknown) Home Medications (units (unknown) date) unknown) (unknown) (no (unknown) (unknown) Hydromorphone HCl (units (unknown) date) (Hydromorphone 1 unknown) Mg Inj) 1 mg IM NOW ONE (unknown) (no (unknown) (unknown) Hyperlipidemia (units (unknown) date) unknown) (unknown) (no (unknown) (unknown) Hypertension (units (u nknown) date) unknown) (unknown) (no (unknown) (unknown) IMPRESSION:? No (units (unknown) date) evidence of unknown) torsion.? Trace left hydrocele.? Other findings as (unknown) (no (unknown) (unknown) INDICATIONS:? (units ( unknown) date) PAIN unknown) (unknown) (no (unknown) (unknown) INHALE 2 PUFFS BY (units (unknown) date) MOUTH EVERY FOUR unknown) HOURS NEEDED FOR WHEEZING OR SHORTNESS (unknown) (no (unknown) (unknown) Imaging Data (units (u nknown) date) unknown) (unknown) (no (unknown) (unknown) Imaging reviewed: (units (unknown) date) Trace left unknown) hydrocele, no evidence of trauma or torsion (unknown) (no (unknown) (unknown) 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 unknown) (unknown) (no (unknown) (unknown) Initial Vital (units ( unknown) date) Signs unknown) (unknown) (no (unknown) (unknown) Initial Vital (units ( unknown) date) Signs: unknown) (unknown) (no (unknown) (unknown) Instructions: DI (units (unknown) date) for Testicular unknown) Pain (unknown) (no (unknown) (unknown) [facility] (units (unknown) date) [address] unknown) [place] [address] (unknown) (no (unknown) (unknown) [facility] (units (unknown) date) unknown) (unknown) (no (unknown) (unknown) Stuart Thibodeaux, (units (unknown) date) [Physician] unknown) (unknown) (no (unknown) (unknown) Jacinda Chou DO (units ( unknown) date) [Primary Care unknown) Provider] (unknown) (no (unknown) (unknown) Lab Data (units (unkno wn) date) unknown) (unknown) (no (unknown) (unknown) Label Comments: (units (unknown) date) unknown) (unknown) (no (unknown) (unknown) Labs reviewed and (units (unknown) date) interpreted by unknown) myself: Urine without evidence of infection or (unknown) (no (unknown) (unknown) Labs: (units (unkno wn) date) unknown) (unknown) (no (unknown) (unknown) Last Admin: (units (un known) date) 10/18/22 18:06 unknown) Dose: 1 mg (unknown) (no (unknown) (unknown) Left:? Left (units (un known) date) testis measures unknown) 3.4 x 2 x 2.8 centimeters.? Overall echotexture is (unknown) (no (unknown) (unknown) Loc: ED (units (unkno wn) date) unknown) (unknown) (no (unknown) (unknown) MDM - Male (units (unk nown) date) Genitourinary unknown) (unknown) (no (unknown) (unknown) MDM Narrative (units ( unknown) date) unknown) (unknown) (no (unknown) (unknown) MR#: [id number] (units (unknown) date) unknown) (unknown) (no (unknown) (unknown) MUSCULOSKELETAL: (units (unknown) date) denies weakness, unknown) joint pain, or bony pain (unknown) (no (unknown) (unknown) Medical History (units (unknown) date) (Reviewed 10/18/22 unknown) @ 20:03 by Benny Bush DO) (unknown) (no (unknown) (unknown) Medical decision (units (unknown) date) making narrative: unknown) (unknown) (no (unknown) (unknown) Medication (units (unk nown) date) Instructions unknown) Recorded Confirmed (unknown) (no (unknown) (unknown) Mode of arrival: (units (unknown) date) Ambulatory unknown) (unknown) (no (unknown) (unknown) Mother Cancer (units ( unknown) date) unknown) (unknown) (no (unknown) (unknown) Multiple (units (unkno wn) date) etiologies for unknown) patient's symptoms considered including, but not limited (unknown) (no (unknown) (unknown) NEUROLOGIC: (units (un known) date) Denies weakness, unknown) headache, numbness, change in speech, confusion, (unknown) (no (unknown) (unknown) Narrative (units (unkn own) date) unknown) (unknown) (no (unknown) (unknown) Narrative: (units (unk nown) date) unknown) (unknown) (no (unknown) (unknown) 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 unknown) (unknown) (no (unknown) (unknown) OF BREATH (units (unkn own) date) unknown) (unknown) (no (unknown) (unknown) Ordered: (units (unkno wn) date) unknown) (unknown) (no (unknown) (unknown) Ordering (units (unkno wn) date) Provider: unknown) Selina Barajas D.O. (unknown) (no (unknown) (unknown) Orders (units (unkno wn) date) unknown) (unknown) (no (unknown) (unknown) Oxygen Delivery (units (unknown) date) Method 10/18/22 unknown) 17:00 (unknown) (no (unknown) (unknown) Oxygen Delivery (units (unknown) date) Method Room Air unknown) (unknown) (no (unknown) (unknown) PROCEDURE:? US (units (unknown) date) SCROTUM unknown) (unknown) (no (unknown) (unknown) PSYCHIATRIC: No (units (unknown) date) concerning unknown) psychosocial issues. (unknown) (no (unknown) (unknown) Pain in right (units ( unknown) date) testicle unknown) (unknown) (no (unknown) (unknown) Patient (units (unkno wn) date) Disposition: Home unknown) (unknown) (no (unknown) (unknown) Patient History (units (unknown) date) unknown) (unknown) (no (unknown) (unknown) Patient's (units (unkn own) date) symptoms improved unknown) over duration of stay with above-stated therapies. (unknown) (no (unknown) (unknown) Patient: (units (unkno wn) date) Zia Hernandez unknown) MR#: [id number] (unknown) (no (unknown) (unknown) Patient: (units (unkno wn) date) Zia Hernandez unknown) (unknown) (no (unknown) (unknown) Peripheral (units (unk nown) date) vascular disease unknown) (unknown) (no (unknown) (unknown) Prescriptions: (units (unknown) date) unknown) (unknown) (no (unknown) (unknown) Prior Charts (units (u nknown) date) reviewed: unknown) including multiple prior ED visits (unknown) (no (unknown) (unknown) Procedure: US (units ( unknown) date) scrotum unknown) (unknown) (no (unknown) (unknown) Pulse Oximetry 97 (units (unknown) date) 10/18/22 17:00 unknown) (unknown) (no (unknown) (unknown) Pulse Oximetry 97 (units (unknown) date) unknown) (unknown) (no (unknown) (unknown) Pulse Rate 57 L (units (unknown) date) 10/18/22 17:00 unknown) (unknown) (no (unknown) (unknown) Pulse Rate 57 L (units (unknown) date) unknown) (unknown) (no (unknown) (unknown) RESPIRATORY: (units (u nknown) date) Denies dyspnea, unknown) cough, wheezing, hemoptysis, sputum. (unknown) (no (unknown) (unknown) RESPONSE. (units (unkn own) date) unknown) (unknown) (no (unknown) (unknown) Radiologist's (units ( unknown) date) Impression: unknown) (unknown) (no (unknown) (unknown) Real-time (units (unkn own) date) scanning was unknown) performed of the scrotum and testicles, with image (unknown) (no (unknown) (unknown) Referrals: (units (unk nown) date) unknown) (unknown) (no (unknown) (unknown) Related Data (units (u nknown) date) unknown) (unknown) (no (unknown) (unknown) Respiratory Rate (units (unknown) date) 18 10/18/22 17:00 unknown) (unknown) (no (unknown) (unknown) Respiratory Rate (units (unknown) date) 18 unknown) (unknown) (no (unknown) (unknown) Return precautions (units (unknown) date) discussed with unknown) patient/family whom verbalize understanding of (unknown) (no (unknown) (unknown) Review of Systems (units (unknown) date) unknown) (unknown) (no (unknown) (unknown) Right epididymis (units (unknown) date) is surgically unknown) absent, possibly with some residual tissue, also (unknown) (no (unknown) (unknown) Right:? Right (units ( unknown) date) testicle measures unknown) 3.7 x 1.7 x 2.7 centimeters.? Echotexture is (unknown) (no (unknown) (unknown) SEEK EMERGENCY (units (unknown) date) MEDICAL CARE. MAY unknown) REPEAT EVERY 2-3 MINUTES IF MINIMAL OR NO (unknown) (no (unknown) (unknown) SKIN: Denies (units (u nknown) date) rash, skin unknown) lesions, or other (unknown) (no (unknown) (unknown) SKIN: Warm, pink, (units (unknown) date) and dry. No unknown) erythema or rash (unknown) (no (unknown) (unknown) Signed By: (units (unk nown) date) unknown) (unknown) (no (unknown) (unknown) Signed (units (unkno wn) date) unknown) (unknown) (no (unknown) (unknown) Sister Thyroid (units (unknown) date) cancer unknown) (unknown) (no (unknown) (unknown) Smoking Status: (units (unknown) date) Former smoker unknown) (unknown) (no (unknown) (unknown) Social History (units (unknown) date) (Reviewed 10/18/22 unknown) @ 20:03 by Benny Bush DO) (unknown) (no (unknown) (unknown) Source: patient (units (unknown) date) unknown) (unknown) (no (unknown) (unknown) Stand Alone (units (un known) date) Forms: Patient unknown) Portal/API (unknown) (no (unknown) (unknown) Stated complaint: (units (unknown) date) thinks he ruptured unknown) a testicle (unknown) (no (unknown) (unknown) Stop: 10/18/22 (units (unknown) date) 18:03 unknown) (unknown) (no (unknown) (unknown) Substance Use (units ( unknown) date) Type: marijuana unknown) (unknown) (no (unknown) (unknown) Surgical History (units (unknown) date) (Reviewed 10/18/22 unknown) @ 20:03 by Benny Bush DO) (unknown) (no (unknown) (unknown) TAKE 1/2 TABLET (units (unknown) date) BY MOUTH TWICE unknown) DAILY (unknown) (no (unknown) (unknown) TAKE ONE TABLET (units (unknown) date) BY MOUTH EVERY SIX unknown) HOURS NEEDED FOR MODERATE PAIN (unknown) (no (unknown) (unknown) TAKE ONE TABLET (units (unknown) date) BY MOUTH ONE TIME unknown) DAILY (unknown) (no (unknown) (unknown) TAKE ONE TABLET (units (unknown) date) BY MOUTH TWICE unknown) DAILY (unknown) (no (unknown) (unknown) TECHNIQUE:? (units (un known) date) unknown) (unknown) (no (unknown) (unknown) Temperature 98.2 (units (unknown) date) F 10/18/22 17:00 unknown) (unknown) (no (unknown) (unknown) Temperature 98.2 (units (unknown) date) F unknown) (unknown) (no (unknown) (unknown) Thyroid cancer (units (unknown) date) unknown) (unknown) (no (unknown) (unknown) Thyroid disease (units (unknown) date) unknown) (unknown) (no (unknown) (unknown) Time Seen by (units (u nknown) date) Provider: 10/18/22 unknown) 18:24 (unknown) (no (unknown) (unknown) Type(s) of (units (unk nown) date) exercise: other unknown) (unknown) (no (unknown) (unknown) US Scrotum: (units (un known) date) unknown) (unknown) (no (unknown) (unknown) Ultrasound Report (units (unknown) date) unknown) (unknown) (no (unknown) (unknown) Urine Dip (units (unkn own) date) unknown) (unknown) (no (unknown) (unknown) Urine Specific (units (unknown) date) [place] 1.025 unknown) (unknown) (no (unknown) (unknown) Vital Signs - 8 (units (unknown) date) hr unknown) (unknown) (no (unknown) (unknown) Vital Signs (units (un known) date) unknown) (unknown) (no (unknown) (unknown) Vital signs: (units (u nknown) date) unknown) (unknown) (no (unknown) (unknown) [ ] New (units (unkno wn) date) medication unknown) prescriptions sent to your pharmacy: [ ] (unknown) (no (unknown) (unknown) [ ] New (units (unkno wn) date) medication written unknown) as a paper prescription (unknown) (no (unknown) (unknown) [67-year-old male (units (unknown) date) on anticoagulation unknown) with testicular pain after injury] (unknown) (no (unknown) (unknown) [x ] No new (units (un known) date) medications given unknown) (unknown) (no (unknown) (unknown) above, (units (unkno wn) date) unknown) (unknown) (no (unknown) (unknown) aerosol inhaler (units (unknown) date) (ProAir HFA) unknown) (unknown) (no (unknown) (unknown) albuterol sulfate (units (unknown) date) 90 mcg/actuation 2 unknown) puff inhalation Q4HR 03/14/22 07/28/22 (unknown) (no (unknown) (unknown) albuterol sulfate (units (unknown) date) [ProAir HFA] 90 unknown) mcg/actuation HFA aerosol inhaler (unknown) (no (unknown) (unknown) alcohol intake (units (unknown) date) frequency: 0-2 unknown) drinks per day (unknown) (no (unknown) (unknown) alfuzosin 10 mg (units (unknown) date) tablet,extended 10 unknown) mg PO DAILY uti 03/14/22 07/28/22 (unknown) (no (unknown) (unknown) alfuzosin (units (unkn own) date) [Uroxatral] 10 mg unknown) tablet extended release 24 hr (unknown) (no (unknown) (unknown) apixaban 5 mg (units ( unknown) date) tablet (Eliquis) 5 unknown) mg PO BID afib 03/14/22 07/28/22 (unknown) (no (unknown) (unknown) appointment. Let (units (unknown) date) them know you were unknown) seen in the Emergency Department and that we (unknown) (no (unknown) (unknown) ask that you be (units (unknown) date) seen in follow up. unknown) We will electronically transmit a record of (unknown) (no (unknown) (unknown) bleeding (units (unkno wn) date) unknown) (unknown) (no (unknown) (unknown) centimeters. (units (u nknown) date) unknown) (unknown) (no (unknown) (unknown) colitis, ostomy (units (unknown) date) presents with pain unknown) in his testicle after an injury earlier (unknown) (no (unknown) (unknown) concerning (units (unk nown) date) symptoms, such as unknown) [fever greater than 101 F, shaking chills, (unknown) (no (unknown) (unknown) constipation, (units ( unknown) date) melena. unknown) (unknown) (no (unknown) (unknown) diagnosis and (units ( unknown) date) plan unknown) (unknown) (no (unknown) (unknown) dizziness. (units (unk nown) date) unknown) (unknown) (no (unknown) (unknown) documentation.? (units (unknown) date) unknown) (unknown) (no (unknown) (unknown) duloxetine [From (units (unknown) date) Cymbalta] Allergy unknown) Intermediate Palpitation Verified 07/28/22 (unknown) (no (unknown) (unknown) favored stable. (units (unknown) date) unknown) (unknown) (no (unknown) (unknown) frequency: other (units (unknown) date) unknown) (unknown) (no (unknown) (unknown) gabapentin (units (unk nown) date) Allergy Severe unknown) Hallucinati Verified 07/28/22 10:11 (unknown) (no (unknown) (unknown) gallops. There is (units (unknown) date) no chest wall unknown) tenderness. (unknown) (no (unknown) (unknown) he is concerned (units (unknown) date) that he ruptured unknown) his testicle. He has pain but no significant (unknown) (no (unknown) (unknown) hemorrhage or (units ( unknown) date) exudate. unknown) (unknown) (no (unknown) (unknown) heterogeneous.? (units (unknown) date) Prominent rete unknown) testes and small cystic foci again seen. (unknown) (no (unknown) (unknown) homogeneous.? (units ( unknown) date) Trace left unknown) hydrocele.? No varicocele. (unknown) (no (unknown) (unknown) household (units (unkn own) date) members: family unknown) (unknown) (no (unknown) (unknown) in both (units (unkno wn) date) unknown) (unknown) (no (unknown) (unknown) levothyroxine 175 (units (unknown) date) mcg tablet 175 mcg unknown) PO DAILY thyroid ca 03/14/22 07/28/22 (unknown) (no (unknown) (unknown) levothyroxine (units ( unknown) date) [Synthroid] 175 unknown) mcg tablet (unknown) (no (unknown) (unknown) lisinopril 2.5 mg (units (unknown) date) tablet (Zestril) unknown) 2.5 mg PO DAILY HTN 03/14/22 07/28/22 (unknown) (no (unknown) (unknown) lisinopril (units (unk nown) date) [Zestril] 2.5 mg unknown) tablet (unknown) (no (unknown) (unknown) marital status: (units (unknown) date) unmarried,single unknown) (unknown) (no (unknown) (unknown) metoprolol (units (unk nown) date) tartrate 25 mg unknown) tablet 12.5 mg PO BID 03/14/22 07/28/22 (unknown) (no (unknown) (unknown) metoprolol (units (unk nown) date) tartrate 25 mg unknown) tablet (unknown) (no (unknown) (unknown) naloxone 4 (units (unk nown) date) mg/actuation nasal unknown) 1 spray intranasal PRN Sedation 03/14/22 07/28/22 (unknown) (no (unknown) (unknown) naloxone [Narcan] (units (unknown) date) 4 mg/actuation unknown) spray,non-aerosol (unknown) (no (unknown) (unknown) ng (units (unkno wn) date) unknown) (unknown) (no (unknown) (unknown) nortriptyline (units ( unknown) date) Allergy Severe unknown) Chest Pain Verified 07/28/22 10:11 (unknown) (no (unknown) (unknown) noted on (units (unkno wn) date) unknown) (unknown) (no (unknown) (unknown) number of (units (unkn own) date) children: 0 unknown) (unknown) (no (unknown) (unknown) of the bed and (units (unknown) date) the railing and unknown) when he stood up he felt a pulling sensation and (unknown) (no (unknown) (unknown) or rhonchi. Heart (units (unknown) date) rate is regular unknown) rhythm, there are no murmurs, clicks, rubs, or (unknown) (no (unknown) (unknown) otherwise well (units (unknown) date) and free of unknown) complaint (unknown) (no (unknown) (unknown) oxycodone 10 mg (units (unknown) date) tablet 10 mg PO unknown) Q4-5H CHRONIC 03/14/22 07/28/22 (unknown) (no (unknown) (unknown) oxycodone 10 mg (units (unknown) date) tablet unknown) (unknown) (no (unknown) (unknown) pregabalin (units (unk nown) date) Allergy unknown) Intermediate VISION Verified 07/28/22 10:11 (unknown) (no (unknown) (unknown) prior ultrasound. (units (unknown) date) unknown) (unknown) (no (unknown) (unknown) release 24 hr (units ( unknown) date) (Uroxatral) unknown) (unknown) (no (unknown) (unknown) s (units (unkno wn) date) unknown) (unknown) (no (unknown) (unknown) seizures, (units (unkn own) date) incoordination. unknown) (unknown) (no (unknown) (unknown) significant (units (un known) date) abnormal findings unknown) such as rupture, bleeding or twisting of the (unknown) (no (unknown) (unknown) solifenacin 5 mg (units (unknown) date) tablet 5 mg PO unknown) DAILY 06/30/22 07/28/22 (unknown) (no (unknown) (unknown) solifenacin 5 mg (units (unknown) date) tablet unknown) (unknown) (no (unknown) (unknown) sounds are normal (units (unknown) date) in all 4 unknown) quadrants. There is no mass or organomegaly. (unknown) (no (unknown) (unknown) spray (Narcan) (units (unknown) date) unknown) (unknown) (no (unknown) (unknown) swelling or (units (un known) date) discoloration. He unknown) denies any difficulty producing urine and is (unknown) (no (unknown) (unknown) swelling, (units (unkn own) date) discoloration or unknown) obvious external manifestation of injury (unknown) (no (unknown) (unknown) testicle] (units (unkn own) date) unknown) (unknown) (no (unknown) (unknown) testicles.? (units (un known) date) unknown) (unknown) (no (unknown) (unknown) to: [Torsion, (units ( unknown) date) hematoma, rupture unknown) versus other] (unknown) (no (unknown) (unknown) today's note (units (u nknown) date) unknown) (unknown) (no (unknown) (unknown) today. He was (units ( unknown) date) laying down and unknown) states it is scrotum got caught between the edge (unknown) (no (unknown) (unknown) verbalization of (units (unknown) date) understanding unknown) (unknown) (no (unknown) (unknown) worsening pain, (units (unknown) date) persistent unknown) vomiting or other bothersome symptoms] (unknown) (no (unknown) (unknown) your history and (units (unknown) date) physical exam are unknown) reassuring and ultrasound demonstrates no Social History date description facility 2022-10-18 00:00 Ex-smoker (finding) [facility] Vital Signs date measurement value units 2022-10-18 00:00 BMI 18.3 kg/m2 2022-10-18 00:00 BP_diastolic 70 mmHg 2022-10-18 00:00 BP_systolic 114 mmHg 2022-10-18 00:00 heart_rate 57 /min 2022-10-18 00:00 height_metric 182.88 cm 2022-10-18 00:00 height_standard 72 in 2022-10-18 00:00 o2_saturation 97 % 2022-10-18 00:00 respiration_rate 18 /min 2022-10-18 00:00 temperature_metric 36.78 C 2022-10-18 00:00 temperature_standard 98.2 F 2022-10-18 00:00 weight_metric 61.23 kg 2022-10-18 00:00 weight_standard 134.99 lb
[2022-11-04] MEDS ORDERED: oxyCODONE 5 MG TABLET PO STA (09:10)
--- NOTE | 2022-11-04 10:37 | Ultrasound Report ---
PROCEDURE: Testicle w/Doppler Limited INDICATIONS: worsening testicular pain after injury TECHNIQUE: Real-time scanning was performed of the scrotum and testicles, with image documentation. Color and p ulse Doppler interrogation was performed of both testicles. COMPARISON: None. FINDINGS: Right: Testicle is normal in size at 4.5 x 1.4 x 2.6 cm, and homogenous in echotexture. Epididymis is normal in overall size and morphology. A right rete testes is noted. No hydrocele or varicoceles. There are multiple right epididymal cysts, with a clump of cysts in total measuring 3.1 x 1.3 x 1.5 cm. Overlying scrotal skin is normal in thickness. Left: Testicle is normal in size at 4.3 x 1.4 x 3.1 cm, and homogeneous in echotexture. Epididymis is normal in overall size and morphology. There is what looks like a partially thrombosed left scrota l varicocele. Overlying scrotal skin is normal in thickness. Doppler: Color and pulse Doppler demonstrate normal and symmetric arterial flow in both testicles. IMPRESSION: 1. There is no evidence of testicular torsion or testicular mass or epididymitis. 2. There is a left scrotal varicocele which appears to be partially thrombosed. Reviewed by: Jose Antonio Seaman MD on 11/04/2022 10:36 AM PST Approved by: Jose Antonio Seaman MD on 11/04/2022 10:36 AM PST Station ID: [id number]
--- NOTE | 2022-11-04 12:20 | ED Physician Documentation ---
History of Present Illness - Stated complaint Stated Complaint: BACK/NECK/MALE - Chief complaint Chief Complaint: Abd Pain - History obtained from History obtained from: Patient - Additonal information Additional information: The patient comes to the emergency department chief complaint of increase in chronic neck and back pain after rationing his oxycodone, and also, continued right testicular pain after a blunt injury to his testicle approximately 4 weeks ago. The patient states that he was a longtime patient of a Dr. Chou of family practice at [facility], but was told that he was too complicated for her practice, and it was requested that he go see internal medicine instead. The patient states he was seen once in internal medicine and was told that they would "send him a letter" to let him know when his next appointment should be. He did not have any medication refills done at that time. The patient states he never got a letter and that his insurance company called him for some reason and they told him that the financial retirement plan specialist no longer had him listed as one of their patients and that he needed to get a new PCP. The patient states that he never tried calling the internal medicine clinic but instead states "I am not ever going there again". The patient has not made any further attempts to find a primary care physician. He states that he has been rationing his oxycodone to try to make it last, but feels like his pain is worse since and also, that he just does not feel well and feels as though his he is withdrawing. The patient states that he does not want to make an appointment with anyone because "it will take 3 months to get seen". He denies any fevers or chills. No trauma to his neck or back. He states that his right testicle has continued to hurt and he is worried that he might have an infection. He denies any redness or swelling. No bulging with straining or heavy lifting. Review of Systems Constitutional: reports: Reviewed and negative Eyes: reports: Reviewed and negative Ears: reports: Reviewed and negative Nose: reports: Reviewed and negative Throat: reports: Reviewed and negative Cardiac: reports: Reviewed and negative Respiratory: reports: Reviewed and negative GI: reports: Reviewed and negative : reports: Testicular pain Skin: reports: Reviewed and negative Musculoskeletal: reports: Neck pain, Back pain Neurologic: reports: Reviewed and negative Psychiatric: reports: Reviewed and negative Endocrine: reports: Reviewed and negative Immunocompromised: reports: Reviewed and negative PD PAST MEDICAL HISTORY - Past Medical History Cardiovascular: Hypertension, High cholesterol, OK Respiratory: COPD Endocrine/Autoimmune: HyPOthyroidism GI: GERD, Other : Benign prostate hypertrophy HEENT: None Musculoskeletal: Osteoarthritis, Chronic back pain - Past Surgical History Past Surgical History: Yes General: Appendectomy, Bowel surgery, Hiatal hernia repair, Other Cardiovascular: Pacemaker - Present Medications Home Medications: Ambulatory Orders Medication Instructions Recorded Confirmed Fluticasone Propionate [Flovent 50 mcg INH BID 09/30/14 06/12/20 Diskus] Levothyroxine [Synthroid] 175 mcg PO DAILY 09/30/14 06/12/20 Oxybutynin Chloride [Ditropan Xl] 10 mg PO DAILY 09/30/14 06/12/20 Oxycodone HCl 10 mg PO TID 09/30/14 06/12/20 Terazosin HCl 10 mg PO DAILY 09/30/14 06/12/20 methocarbamoL [Methocarbamol] 750 mg PO Q6HR PRN 09/30/14 06/12/20 Aspirin [Casey Chewable Aspirin] 81 mg PO DAILY 02/11/16 06/12/20 Atorvastatin [Lipitor] 20 mg PO DAILY 02/11/16 06/12/20 Docusate Sodium 250Mg Capsule 250 mg PO DAILY #20 capsule 02/11/16 06/12/20 [Colace] Ibuprofen [Motrin] 200 mg PO DAILY PRN 02/11/16 06/12/20 Isosorbide Mononitrate ER [Imdur] 30 mg PO DAILY 02/11/16 06/12/20 polyethylene glycoL 3350 [Miralax] 17 gm PO DAILY PRN 02/11/16 06/12/20 Albuterol Sulfate [Proair Hfa 2 puffs IH QID #1 hfa.aer.ad 11/17/16 06/12/20 Inhaler] Carvedilol 6.25 mg PO BID #15 tablet 11/17/16 06/12/20 diazePAM [Valium] 5 - 10 mg PO TID PRN #15 tablet 06/12/20 oxyCODONE/ACET 5/325 [Percocet 5 1 each PO Q4-6H #20 tablet 11/04/22 mg/325 mg] - Allergies Allergies/Adverse Reactions: Allergies Allergy/AdvReac Type Severity Reaction Status Date / Time gabapentin Allergy Hallucinati Verified 11/04/22 08:12 ons - Social History Does the pt smoke?: Yes Smoking Status: Current every day smoker Does the pt drink ETOH?: No Does the pt have substance abuse?: No - Immunizations Immunizations are current?: Yes - POLST Patient has POLST: No PD ED PE NORMAL - Vitals Vital signs reviewed: Yes - General General: Alert and oriented X 3, No acute distress, Well developed/nourished - HEENT HEENT: Atraumatic, PERRL, EOMI, Moist mucous membranes - Neck Neck: Supple, no meningeal sign - Respiratory Respiratory: No respiratory distress - Abdomen Abdomen: Soft, Non tender, Non distended - Male Male : Other (Normal male genitalia. Testicles are symmetrical bilaterally. No scrotal skin changes. No erythema, induration, fluctuance, or thickening. The patient is circumcised. No penile discharge. No inguinal bulging or tenderness) - Derm Derm: Normal color, Warm and dry, No rash - Extremities Extremities: No deformity, No edema - Neuro Neuro: Alert and oriented X 3 - Psych Psych: Normal mood, Normal affect Results - Vitals Vitals: Vital Signs - 24 hr 11/04/22 11/04/22 08:07 13:00 Temperature 37.1 C Heart Rate 67 78 Respiratory 18 18 Rate Blood Pressure 108/67 100/77 O2 Saturation 100 99 Oxygen O2 Source Room air - Rads (name of study) Ultrasound testicles Radiology: Final report received, See rad report (Left-sided varicocele, otherwise unremarkable.) PD Medical Decision Making - ED course Complexity details: reviewed results, re-evaluated patient, considered differential, d/w patient ED course: I discussed with the patient that the ultrasound, which I ordered, shows a varicocele on the opposite side of his symptoms but otherwise is unremarkable. We discussed at length that the patient is going to have to be proactive about getting a primary care physician and that the emergency department will not refill his chronic pain medications again. I will give him a small refill this time but he is advised that he needs to call his internal medicine clinic to be sure a mistake was not made in his discharge from their clinic, and also, that he needs to call his insurance companies to determine who in primary care would be covered by his insurance. The patient is somewhat resistant to these recommendations, but I have reiterated that he simply will not be able to cindi maria luz to get his pain medications here and that he needs to make an appointment soon as possible, particularly if it does indeed take months to get into the clinic. The patient is stable for discharge home. We have discussed the usual indications for return. Departure - Departure Disposition: 01 Home, Self Care Clinical Impression: Testicular pain, right Chronic back pain Qualifiers: Back pain location: low back pain Back pain laterality: unspecified Sciatica presence: without sciatica Qualified Code(s): M54.50 - Low back pain, unspecified Opiate dependence Qualifiers: Substance use status: uncomplicated Qualified Code(s): F11.20 - Opioid dependence, uncomplicated Condition: Stable Instructions: ED Neck Back Pain General, ED Testicular Pain [facility] Prescriptions: oxyCODONE/ACET 5/325 [Percocet 5 mg/325 mg] 1 each PO Q4-6H #20 tablet Comments: Your ultrasound does not show any concerning findings. You do not have any evidence of infection, either on exam or on ultrasound. As far as your chronic neck and back pain and the oxycodone dependence, it is very important that you be proactive about establishing primary care follow-up. This is not something the emergency department can do for you. Rather than assuming that the internal medicine clinic does not want to see you, you should follow this up yourself with a phone call to determine that a mistake has not been made or that mannie ething did not fall through the cracks. If the internal medicine clinic states that they do not want to administer your primary care, then you need to call your insurance company via the number that they gave you, to determine who in the area you can see for primary care that would be covered by your insurance. Once you determine this, you should make the soonest possible appointment to be seen, even if they are soonest available appointment is 3 months from now. The sooner you get an appointment, the sooner the months will go by and you can be seen. You have been given a small prescription for oxycodone, but you will need to be proactive about setting up follow-up, as the emergency department will not continue to refill chronic medications. Your prescription has been electronically transmitted to the [facility] pharmacy in [place], your pharmacy of choice on record. Discharge Date/Time: 11/04/22 13:00
[2022-11-04 13:01] VITALS: BP 100/77
== END 2022-11-04 13:00 | disposition home or self-care (01) ==
LOC: ED 07:58
DX: N50.811 Right testicular pain (principal); M54.50 Low back pain, unspecified; F11.20 Opioid dependence, uncomplicated; F17.200 Nicotine dependence, unspecified, uncomplicated
CPT/HCPCS: 76870; 93976; 99284; A9270